=== PATIENT | female | born 1975 | race Caucasian/White ===

== ENCOUNTER 2017-12-30 17:34 | Inpatient (IN) | payer OTHER ==
[2017-12-30] VITALS (7 sets, daily range): BP systolic 96–129; BP diastolic 59–72; PULSE 59–83; RESP 16–20; TEMP 96.7–97.6; O2SAT 95–100
[~2017-12-30] VITALS: Ht 172.7 cm; Wt 82.0 kg
[~2017-12-30 17:34] MED LIST: IBUP-232 PO
[2017-12-30] MEDS ORDERED: SODIUM CHLOR 0.9% 1000 ML INJ 1,000 ML IV SCH (20:03)
--- NOTE | 2017-12-30 20:12 | PD ---
HPI Chief Complaint: GI Complaint Time Seen by Provider: 19:57 Travel History International Travel<30 days: No Contact w/Intl Traveler<30days: No Traveled to known affect area: No History of Present Illness HPI The patient is a 42-year-old female that complains of right upper abdominal pain and bilateral upper abdominal pain since 1245. The patient states she ate a normal lunch at 12:30 and the pain began at 1245. She knows she has gallstones, an ultrasound done last year, last summer, showed multiple gallstones in the gallbladder. This was done at [facility]. She denies any fever or vomiting but does have nausea. She states her pain is sharp and a 7/10. The pain radiates to both sides of her back. She states she gets these pains occasionally but they go away within a half an hour. This one did not go away. The patient states there is no possibility of , she has a Mirena. PFSH Past Medical History Diminished Hearing: No Social History Alcohol Use: No Tobacco Use: No Substance Use: No Allergies-Medications (Allergen,Severity, Reaction): Coded Allergies: No Known Allergies (Unverified Allergy, Unknown, 12/30/17) Reported Meds & Prescriptions Reported Meds & Active Scripts Active No Active Prescriptions or Reported Medications Review of Systems Except as stated in HPI: all other systems reviewed are Neg Physical Exam Narrative GENERAL: The patient is alert, oriented 3, slender in moderate apparent distress with her bilateral upper quadrant abdominal pain. Her vital signs are normal. SKIN: Focused skin assessment warm/dry. No skin rash is seen. HEAD: Atraumatic. Normocephalic. EYES: Pupils equal and round. No scleral icterus. No injection or drainage. ENT: No nasal bleeding or discharge. Mucous membranes pink and moist. NECK: Trachea midline. No JVD. CARDIOVASCULAR: Regular rate and rhythm. No murmur appreciated. RESPIRATORY: No accessory muscle use. Clear to auscultation. Breath sounds equal bilaterally. GASTROINTESTINAL: Abdomen soft, with tenderness in the bilateral upper quadrants without guarding but Davis's sign is positive, nondistended. Hepatic and splenic margins not palpable. MUSCULOSKELETAL: No obvious deformities. No clubbing. No cyanosis. No edema. NEUROLOGICAL: Awake and alert. No obvious cranial nerve deficits. Motor grossly within normal limits. Normal speech. PSYCHIATRIC: Appropriate mood and affect; insight and judgment normal. Data Data Last Documented VS Vital Signs Date Time Temp Pulse Resp B/P (MAP) Pulse Ox O2 Delivery O2 Flow Rate FiO2 12/30/17 21:44 67 16 96/64 (75) 99 Room Air 12/30/17 17:38 97.6 Orders Orders Complete Blood Count With Diff (12/30/17 20:03) Comprehensive Metabolic Panel (12/30/17 20:03) Lipase (12/30/17 20:03) Urinalysis - C+S If Indicated (12/30/17 20:03) Ct Abd/Pel W Iv Contrast(Rout) (12/30/17 20:03) Iv Access Insert/Monitor (12/30/17 20:03) Ecg Monitoring (12/30/17 20:03) Oximetry (12/30/17 20:03) Hydromorphone Pf Inj (Dilaudid Pf Inj) (12/30/17 20:15) Ondansetron Inj (Zofran Inj) (12/30/17 20:15) Sodium Chlor 0.9% 1000 Ml Inj (Ns 1000 M (12/30/17 20:03) Sodium Chloride 0.9% Flush (Ns Flush) (12/30/17 20:15) Ed Urine Pregnancytest Poc (12/30/17 20:16) Iohexol 350 Inj (Omnipaque 350 Inj) (12/30/17 20:52) Place In Observation (12/30/17 ) Vital Signs (Adult) Q4H (12/30/17 21:47) Activity Oob With Assistance (12/30/17 21:47) Diet Npo (12/31/17 Breakfast) Sodium Chlor 0.9% 1000 Ml Inj (Ns 1000 M (12/30/17 21:47) Sodium Chloride 0.9% Flush (Ns Flush) (12/30/17 22:00) Sodium Chloride 0.9% Flush (Ns Flush) (12/31/17 09:00) Acetaminophen (Tylenol) (12/30/17 22:00) Ondansetron Inj (Zofran Inj) (12/30/17 22:00) Comprehensive Metabolic Panel (12/31/17 06:00) Complete Blood Count With Diff (12/31/17 06:00) Scd Bilateral/Knee High PIPPA.BID (12/30/17 21:47) Naloxone Inj (Narcan Inj) (12/30/17 22:00) Docusate Sodium-Senna (Heydi-Colace) (12/31/17 09:00) Magnesium Hydroxide Liq (Milk Of Magnesi (12/30/17 22:00) Sennosides (Senokot) (12/30/17 22:00) Bisacodyl Supp (Dulcolax Supp) (12/30/17 22:00) Lactulose Liq (Lactulose Liq) (12/30/17 22:00) Consult Gastroenterology (12/30/17 ) Admit Order (Ed Use Only) (12/30/17 21:50) Labs Laboratory Tests Test 12/30/17 19:50 White Blood Count 15.1 TH/MM3 Red Blood Count 4.59 MIL/MM3 Hemoglobin 14.3 GM/DL Hematocrit 42.2 % Mean Corpuscular Volume 91.9 FL Mean Corpuscular Hemoglobin 31.2 PG Mean Corpuscular Hemoglobin Concent 33.9 % Red Cell Distribution Width 12.9 % Platelet Count 204 TH/MM3 Mean Platelet Volume 10.6 FL Neutrophils (%) (Auto) 78.8 % Lymphocytes (%) (Auto) 14.2 % Monocytes (%) (Auto) 5.8 % Eosinophils (%) (Auto) 0.7 % Basophils (%) (Auto) 0.5 % Neutrophils # (Auto) 11.9 TH/MM3 Lymphocytes # (Auto) 2.1 TH/MM3 Monocytes # (Auto) 0.9 TH/MM3 Eosinophils # (Auto) 0.1 TH/MM3 Basophils # (Auto) 0.1 TH/MM3 CBC Comment DIFF FINAL Differential Comment Urine Color REBECA Urine Turbidity CLEAR Urine pH GREATER/EQUAL 9.0 Urine Specific [place] 1.020 Urine Protein TRACE mg/dL Urine Glucose (UA) NEG mg/dL Urine Ketones NEG mg/dL Urine Occult Blood NEG Urine Nitrite NEG Urine Bilirubin NEG Urine Leukocyte Esterase NEG Urine RBC 0-2 /hpf Urine WBC 0-2 /hpf Urine Squamous Epithelial Cells 6-8 /hpf Urine Amorphous Sediment FEW Urine Bacteria NONE /hpf Microscopic Urinalysis Comment CULT NOT INDICATED Blood Urea Nitrogen 10 MG/DL Creatinine 0.77 MG/DL Random Glucose 104 MG/DL Total Protein 7.8 GM/DL Albumin 4.2 GM/DL Calcium Level 9.2 MG/DL Alkaline Phosphatase 199 U/L Aspartate Amino Transf (AST/SGOT) 460 U/L Alanine Aminotransferase (ALT/SGPT) 276 U/L Total Bilirubin 2.3 MG/DL Sodium Level 135 MEQ/L Potassium Level 3.5 MEQ/L Chloride Level 102 MEQ/L Carbon Dioxide Level 26.7 MEQ/L Anion Gap 6 MEQ/L Estimat Glomerular Filtration Rate 83 ML/MIN Lipase 165 U/L MDM Medical Decision Making Medical Screen Exam Complete: Yes Emergency Medical Condition: Yes Medical Record Reviewed: Yes Interpretation(s) The CT scan of the abdomen/pelvis shows multiple gallstones in the gallbladder and some dilatation of the common bile duct and biliary tree suggestive of some biliary tract obstruction. There is an IUD in the uterus and a right ovarian cyst measuring 3.6 cm. The urinalysis is rebeca color but is otherwise normal and culture is not indicated. The complete metabolic profile shows a GFR of 83 , alkaline phosphatase 199, GOT 460, GPT 276 and total bilirubin of 2.3 with sodium 135. The lipase is normal. The white count is 15,100 with 79% neutrophils but is otherwise unremarkable. Differential Diagnosis Cholelithiasis with colic, acute cholecystitis, pyelonephritis, colitis, pancreatitis, ulcer pain Narrative Course The patient appears to have common bile duct obstruction. This shows up on the CT of the abdomen and also shows with elevated liver enzymes. I discussed the patient with Dr. Herring, the patient will be admitted to her. Diagnosis Primary Impression: Common bile duct obstruction Scripts No Active Prescriptions or Reported Meds Josue Gayle MD Dec 30, 2017 20:12
[2017-12-30] MEDS ORDERED: HYDROmorphone HCL PF 2 MG/ML VIAL IVS ONE (20:15)
[2017-12-30] MEDS ORDERED: SODIUM CHLORIDE 0.9% FLUSH 10 ML FLUSH IV FLUSH PRN ×2 (20:15→22:00)
[2017-12-30] MEDS ORDERED: ONDANSETRON HCL 4 MG/2 ML VIAL IVP ONE (20:15)
[2017-12-30 20:23] LABS: AUTOMATED NEUTROPHIL # 11.9 TH/MM3 (1.8-7.7); BASOPHIL # 0.1 TH/MM3 (0-0.2); BASOPHIL % 0.5 % (0.0-2.0); EOSINOPHIL # 0.1 TH/MM3 (0-0.4); EOSINOPHIL % 0.7 % (0.0-4.0); HEMATOCRIT 42.2 % (35.0-46.0); HEMOGLOBIN 14.3 GM/DL (11.6-15.3); LYMPH % 14.2 % (9.0-44.0); LYMPHOCYTE # 2.1 TH/MM3 (1.0-4.8); MEAN CELL VOLUME 91.9 FL (80.0-100.0); MEAN CORPUSCULAR HEMOGLOBIN 31.2 PG (27.0-34.0); MEAN CORPUSCULAR HGB CONC 33.9 % (32.0-36.0); MEAN PLATELET VOLUME 10.6 FL (7.0-11.0); MONO % 5.8 % (0.0-8.0); MONOCYTE # 0.9 TH/MM3 (0-0.9); NEUT % 78.8 % (16.0-70.0); PLATELET COUNT 204 TH/MM3 (150-450); RED BLOOD COUNT 4.59 MIL/MM3 (4.00-5.30); RED CELL DISTRIBUTION WIDTH 12.9 % (11.6-17.2); WHITE BLOOD COUNT 15.1 TH/MM3 (4.0-11.0)
[2017-12-30 20:32] LABS: BILIRUBIN, URINE NEG (NEG); BLOOD, URINE NEG (NEG); GLUCOSE,URINE NEG (NEG); KETONE, URINE NEG (NEG); NITRITE,URINE NEG (NEG); PH, URINE GREATER/EQUAL 9.0 (5.0-8.5); URINE LEUKOCYTE ESTERASE NEG (NEG)
[2017-12-30 20:33] LABS: CHLORIDE 102 MEQ/L (98-107); SODIUM (NA) 135 MEQ/L (136-145)
[2017-12-30 20:36] LABS: ALBUMIN 4.2 GM/DL (3.4-5.0); BICARBONATE 26.7 MEQ/L (21.0-32.0); CALCIUM 9.2 MG/DL (8.5-10.1); URINE COLOR AMBER (YELLW/STRAW)
[2017-12-30 20:37] LABS: BLOOD UREA NITROGEN 10 MG/DL (7-18); GLUCOSE,RANDOM 104 MG/DL (74-106)
[2017-12-30 20:38] LABS: AMORPHOUS SEDIMENT, URINE FEW; RBC, URINE 0-2 /hpf (0-3); WBC, URINE 0-2 /hpf (0-5)
[2017-12-30 20:39] LABS: ALT (GPT) 276 U/L (10-53); AST (GOT) 460 U/L (15-37); CREATININE 0.77 MG/DL (0.50-1.00); GLOMERULAR FILTRATION RATE 83 ML/MIN (>89)
[2017-12-30 20:41] LABS: TOTAL BILIRUBIN ADULT 2.3 MG/DL (0.2-1.0); TOTAL PROTEIN 7.8 GM/DL (6.4-8.2)
[2017-12-30 20:42] LABS: ALKALINE PHOSPHATASE 199 U/L (45-117)
[2017-12-30] MEDS ORDERED: IOHEXOL 350 MG/ML 10 ML VIAL (for RAD DIAG) IVCONTRAST ONE (20:52)
--- NOTE | 2017-12-30 21:15 | RADRPT ---
EXAM DATE/TIME: 12/30/2017 20:48 [facility] COMPARISON: No previous studies available for comparison. INDICATIONS : Right upper quadrant abdominal pain. IV CONTRAST: 100 cc Omnipaque 350 (iohexol) IV ORAL CONTRAST: No oral contrast ingested. RADIATION DOSE: 15.57 CTDIvol (mGy) MEDICAL HISTORY : None SURGICAL HISTORY : None. ENCOUNTER: Initial ACUITY: 1 day PAIN SCALE: 5/10 LOCATION: Right upper quadrant abdomen TECHNIQUE: Volumetric scanning of the abdomen and pelvis was performed. Using automated exposure control and ad justment of the mA and/or kV according to patient size, radiation dose was kept as low as reasonably achievable to obtain optimal diagnostic quality images. DICOM format image data is available electro nically for review and comparison. FINDINGS: LOWER LUNGS: The visualized lower lungs are clear. LIVER: Liver is normal in size. There is a mildly dilated biliary ducts. There are stones in the gallbladder . There is some dilatation of the common bile duct measuring approximately 8 mm. SPLEEN: Normal size without lesion. PANCREAS: Within normal limits. KIDNEYS: Normal in size and shape. There is no mass, stone or hydronephrosis. ADRENAL GLANDS: Within normal limits. VASCULAR: There is no aortic aneurysm. BOWEL/MESENTERY: The stomach, small bowel, and colon demonstrate no acute abnormality. There is no free intraperitone al air or fluid. No inflammatory changes. ABDOMINAL WALL: Within normal limits. RETROPERITONEUM: There is no lymphadenopathy. BLADDER: No wall thickening or mass. REPRODUCTIVE: There is a right ovarian cyst measuring 3.4 x 3.6 cm. The uterus is unremarkable except for an IUD. N o free fluid in the cul-de-sac. INGUINAL: There is no lymphadenopathy or hernia. MUSCULOSKELETAL: Within normal limits for patient age. CONCLUSION: 1. Multiple gallstones in the gallbladder. 2. There appears to be some dilatation the common bile duct and biliary tree suggestive of some bilia ry tract obstruction. 3. Right ovarian cyst measuring 3.6 cm. 4. IUD in uterus. Mayur Maradiaga MD on December 30, 2017 at 21:09 Board Certified Radiologist. This report was verified electronically.
[2017-12-30] MEDS ORDERED: SENNOSIDES 8.6 MG TAB PO PRN (22:00)
[2017-12-30] MEDS ORDERED: ACETAMINOPHEN 325 MG TAB PO PRN (22:00)
[2017-12-30] MEDS ORDERED: MAGNESIUM HYDROXIDE SUSP 30 ML CUP PO PRN (22:00)
[2017-12-30] MEDS ORDERED: NALOXONE HCL 0.4 MG/ML AMP IV PUSH PRN (22:00)
[2017-12-30] MEDS ORDERED: BISACODYL 10 MG SUPP RECTAL PRN (22:00)
[2017-12-30] MEDS ORDERED: LACTULOSE SYRUP 20 GM/30 ML CUP PO PRN (22:00)
[2017-12-30] MEDS: ONDANSETRON HCL 4 MG/2 ML VIAL IVP PRN (22:12)
[2017-12-30] MEDS: SODIUM CHLOR 0.9% 1000 ML INJ 1,000 ML IV SCH (22:12)
[2017-12-31 04:00] VITALS: BP 101/57; PULSE 58; RESP 20; TEMP 98.1; O2SAT 100
[2017-12-31] MEDS ORDERED: MORPHINE SULFATE 2 MG/ML INJ IV PUSH PRN (05:15)
[2017-12-31] MEDS: ONDANSETRON HCL 4 MG/2 ML VIAL IVP PRN (05:25)
[2017-12-31 07:05] LABS: AUTOMATED NEUTROPHIL # 7.7 TH/MM3 (1.8-7.7); BASOPHIL % 0.2 % (0.0-2.0); EOSINOPHIL # 0.3 TH/MM3 (0-0.4); EOSINOPHIL % 2.3 % (0.0-4.0); HEMATOCRIT 37.1 % (35.0-46.0); LYMPH % 20.2 % (9.0-44.0); LYMPHOCYTE # 2.3 TH/MM3 (1.0-4.8); MEAN CELL VOLUME 93.1 FL (80.0-100.0); MEAN CORPUSCULAR HEMOGLOBIN 30.2 PG (27.0-34.0); MEAN CORPUSCULAR HGB CONC 32.4 % (32.0-36.0); MEAN PLATELET VOLUME 10.9 FL (7.0-11.0); MONO % 8.4 % (0.0-8.0); MONOCYTE # 0.9 TH/MM3 (0-0.9); NEUT % 68.9 % (16.0-70.0); PLATELET COUNT 176 TH/MM3 (150-450); RED BLOOD COUNT 3.98 MIL/MM3 (4.00-5.30); RED CELL DISTRIBUTION WIDTH 13.3 % (11.6-17.2); WHITE BLOOD COUNT 11.2 TH/MM3 (4.0-11.0)
[2017-12-31 07:12] LABS: CHLORIDE 107 MEQ/L (98-107); SODIUM (NA) 139 MEQ/L (136-145)
[2017-12-31 07:37] LABS: ALKALINE PHOSPHATASE 154 U/L (45-117); ALT (GPT) 288 U/L (10-53); AST (GOT) 334 U/L (15-37); BICARBONATE 25.3 MEQ/L (21.0-32.0); BLOOD UREA NITROGEN 8 MG/DL (7-18); CALCIUM 7.7 MG/DL (8.5-10.1); CREATININE 0.64 MG/DL (0.50-1.00); GLOMERULAR FILTRATION RATE 102 ML/MIN (>89); GLUCOSE,RANDOM 85 MG/DL (74-106); TOTAL BILIRUBIN ADULT 3.9 MG/DL (0.2-1.0); TOTAL PROTEIN 5.6 GM/DL (6.4-8.2)
[2017-12-31] MEDS: SODIUM CHLOR 0.9% 1000 ML INJ 1,000 ML IV SCH ×2 (07:47→20:51)
[2017-12-31] MEDS: DOCUSATE SODIUM 50 MG/SENNA 8.6 MG TAB PO SCH ×2 (09:00→20:52)
[2017-12-31] MEDS: SODIUM CHLORIDE 0.9% FLUSH 10 ML FLUSH IV FLUSH SCH ×2 (09:00→20:52)
[2017-12-31 09:11] VITALS: BP 107/60; PULSE 66; RESP 16; TEMP 97.3; O2SAT 99
--- NOTE | 2017-12-31 11:58 | HHI.HP ---
[facility] Kody Farris MD Admission Diagnosis common bile duct obstruction Diagnoses: Travel History International Travel<30 Days: No Contact w/Intl Traveler <30 Da: No Traveled to Known Affected Are: No History of Present Illness hx from patient and review of med records stated that yesterday around 1230 pm, she started having abdominal pain, pain in ruq pain some nausea no vomiting no diarrhea no fever usually knows she has gallstones this is her 4th gallbladder attack Review of Systems Except as stated in HPI: all other systems reviewed are Neg Past Family Social History Past Medical History cholelithiasis seasonal allergies Past Surgical History nasal septum deviation sx Mirena replaced Allergies: Coded Allergies: No Known Allergies (Unverified Allergy, Unknown, 12/31/17) Family History grandma- lung cancer grandfather- colon cancer step sister- ovarian cancer mom- thyroid problems aunt- maternal- breast and skin cancer Social History quit smoking 2004 drinks wine one or two a night no drugs Physical Exam Vital Signs Vital Signs Date Time Temp Pulse Resp B/P (MAP) Pulse Ox O2 Delivery O2 Flow Rate FiO2 12/31/17 09:11 97.3 66 16 107/60 (76) 99 12/31/17 04:00 98.1 58 20 101/57 (72) 100 12/30/17 23:30 96.7 83 20 116/68 (84) 99 12/30/17 23:21 65 18 102/71 (81) 99 12/30/17 22:41 59 18 109/72 (84) 100 Room Air 12/30/17 21:44 67 16 96/64 (75) 99 Room Air 12/30/17 20:39 72 16 106/64 (78) 99 Room Air 12/30/17 20:10 95 Room Air 12/30/17 20:06 18 12/30/17 17:38 97.6 73 16 129/59 (82) 100 Physical Exam GENERAL: This is a well-nourished, well-developed patient, in no apparent distress. SKIN: No rashes, ecchymoses or lesions. Cool and dry. HEAD: Atraumatic. Normocephalic. No temporal or scalp tenderness. EYES: mild scleral icterus. No injection or drainage. ENT: Nose without bleeding, purulent drainage or septal hematoma. . Airway patent. NECK: Trachea midline. No JVD CARDIOVASCULAR: Regular rate and rhythm without murmurs, gallops, or rubs. RESPIRATORY: Clear to auscultation. Breath sounds equal bilaterally. No wheezes , rales, or rhonchi. GASTROINTESTINAL: Abdomen soft,tenderness diffusely, nondistended. . No guarding. MUSCULOSKELETAL: Extremities without clubbing, cyanosis, or edema. No joint tenderness, effusion, or edema noted. No calf tenderness. NEUROLOGICAL: Awake and alert. Motor and sensory grossly within normal limits. Normal speech. Laboratory Laboratory Tests Test 12/30/17 19:50 12/31/17 05:45 White Blood Count 15.1 11.2 Red Blood Count 4.59 3.98 Hemoglobin 14.3 12.0 Hematocrit 42.2 37.1 Mean Corpuscular Volume 91.9 93.1 Mean Corpuscular Hemoglobin 31.2 30.2 Mean Corpuscular Hemoglobin Concent 33.9 32.4 Red Cell Distribution Width 12.9 13.3 Platelet Count 204 176 Mean Platelet Volume 10.6 10.9 Neutrophils (%) (Auto) 78.8 68.9 Lymphocytes (%) (Auto) 14.2 20.2 Monocytes (%) (Auto) 5.8 8.4 Eosinophils (%) (Auto) 0.7 2.3 Basophils (%) (Auto) 0.5 0.2 Neutrophils # (Auto) 11.9 7.7 Lymphocytes # (Auto) 2.1 2.3 Monocytes # (Auto) 0.9 0.9 Eosinophils # (Auto) 0.1 0.3 Basophils # (Auto) 0.1 0.0 CBC Comment DIFF FINAL DIFF FINAL Differential Comment Urine Color CARROLL Urine Turbidity CLEAR Urine pH GREATER/EQUAL 9.0 Urine Specific [place] 1.020 Urine Protein TRACE Urine Glucose (UA) NEG Urine Ketones NEG Urine Occult Blood NEG Urine Nitrite NEG Urine Bilirubin NEG Urine Leukocyte Esterase NEG Urine RBC 0-2 Urine WBC 0-2 Urine Squamous Epithelial Cells 6-8 Urine Amorphous Sediment FEW Urine Bacteria NONE Microscopic Urinalysis Comment CULT NOT INDICATED Blood Urea Nitrogen 10 8 Creatinine 0.77 0.64 Random Glucose 104 85 Total Protein 7.8 5.6 Albumin 4.2 3.0 Calcium Level 9.2 7.7 Alkaline Phosphatase 199 154 Aspartate Amino Transf (AST/SGOT) 460 334 Alanine Aminotransferase (ALT/SGPT) 276 288 Total Bilirubin 2.3 3.9 Sodium Level 135 139 Potassium Level 3.5 3.6 Chloride Level 102 107 Carbon Dioxide Level 26.7 25.3 Anion Gap 6 7 Estimat Glomerular Filtration Rate 83 102 Lipase 165 Result Diagram: 12/31/1745 12/31/1745 Imaging Last 48 hours Impressions Abdomen/Pelvis CT 12/30/172002 Signed Impressions: Service Date/Time: Saturday, December 30, 2017 20:48 - CONCLUSION: 1. Multiple gallstones in the gallbladder. 2. There appears to be some dilatation the common bile duct and biliary tree suggestive of some biliary tract obstruction. 3. Right ovarian cyst measuring 3.6 cm. 4. IUD in uterus. MD Clary Cedillo VTE Risk Assessment Caprini VTE Risk Assessment: No/Low Risk (score <= 1) Caprini Risk Assessment Model Point Value = 1 Point Value = 2 Point Value = 3 Point Value = 5 Age 41-60 Minor surgery BMI > 25 kg/m2 Swollen legs Varicose veins or History of unexplained or recurrent spontaneous Oral contraceptives or hormone replacement Sepsis (< 1 month) Serious lung disease, including pneumonia (< 1 month) Abnormal pulmonary function Acute myocardial infarction Congestive heart failure (< 1 month) History of inflammatory bowel disease Medical patient at bed rest Age 61-74 Arthroscopic surgery Major open surgery (> 45 min) Laparoscopic surgery (> 45 min) Malignancy Confined to bed (> 72 hours) Immobilizing plaster cast Central venous access Age >= 75 History of VTE Family history of VTE Factor V Leiden Prothrombin [id number] Lupus anticoagulant Anticardiolipin antibodies Elevated serum homocysteine Heparin-induced thrombocytopenia Other congenital or acquired thrombophilia Stroke (< 1 month) Elective arthroplasty Hip, pelvis, or leg fracture Acute spinal cord injury (< 1 month) Prophylaxis Regimen Total Risk Factor Score Risk Level Prophylaxis Regimen 0-1 Low Early ambulation 2 Moderate Order ONE of the following: *Sequential Compression Device (SCD) *Heparin 5000 units SQ BID 3-4 Higher Order ONE of the following medications: *Heparin 5000 units SQ TID *Enoxaparin/Lovenox 40 mg SQ daily (WT < 150 kg, CrCl > 30 mL/min) *Enoxaparin/Lovenox 30 mg SQ daily (WT < 150 kg, CrCl > 10-29 mL/min) *Enoxaparin/Lovenox 30 mg SQ BID (WT < 150 kg, CrCl > 30 mL/min) AND/OR *Sequential Compression Device (SCD) 5 or more Highest Order ONE of the following medications: *Heparin 5000 units SQ TID (Preferred with Epidurals) *Enoxaparin/Lovenox 40 mg SQ daily (WT < 150 kg, CrCl > 30 mL/min) *Enoxaparin/Lovenox 30 mg SQ daily (WT < 150 kg, CrCl > 10-29 mL/min) *Enoxaparin/Lovenox 30 mg SQ BID (WT < 150 kg, CrCl > 30 mL/min) AND *Sequential Compression Device (SCD) Assessment and Plan Assessment and Plan Impression: symptomatic cholelithiasis CBD dilation. Suspect CBD stone. LFT abnormalities secondary to biliary obstruction Obstructive jaundice Plan: Nothing by mouth. IV hydration. Pain control. GI was consulted. Discussed with GI doc for ERCP. Advised to transfer patient today for ERCP today at the [facility]. General surgery consult for cholecystectomy. DVT prophylaxis with SCD. chagned to full admit Discussed Condition With patient, GI attending, nursing staff Zahraa Justin MD Dec 31, 2017 11:58
[2017-12-31] MEDS ORDERED: PROPOFOL 200 MG/20 ML AMP IV ONE (12:00)
[2017-12-31] MEDS ORDERED: DEXAMETHASONE SOD PHOS 4 MG/ML VIAL IV ONE (12:00)
[2017-12-31] MEDS ORDERED: SUCCINYLCHOLINE CHLORIDE 200 MG/10 ML VIAL IV ONE (12:00)
[2017-12-31] MEDS ORDERED: ONDANSETRON HCL 4 MG/2 ML VIAL IV ONE (12:00)
[2017-12-31] MEDS ORDERED: LIDOCAINE HCL 1% PF 5 ML SYRINGE OTHER ONE (12:00)
[2017-12-31 13:42] VITALS: BP 100/55; PULSE 64; RESP 16; TEMP 98; O2SAT 97
--- NOTE | 2017-12-31 15:21 | RADRPT ---
EXAM DATE/TIME: 12/31/2017 12:38 [facility] COMPARISON: CT ABDOMEN & PELVIS W CONTRAST, December 30, 2017, 20:48. INDICATIONS : Right upper quadrant pain. Abnormal CT. MEDICAL HISTORY : Cholelithiasis. Nausea. Abdominal pain. SURGICAL HISTORY : Nasal surgery. ENCOUNTER: Initial ACUITY: 1 day PAIN SCORE: 3/10 LOCATION: Right upper quadrant MEASUREMENTS: LIVER: 15.2 cm length COMMON DUCT: 9 mm RIGHT KIDNEY: 13.4 x 4.7 x 4.7 cm FINDINGS: LIVER: Mild intrahepatic biliary ductal dilatation. No focal liver mass. COMMON DUCT: Mildly dilated with a diameter of 9 mm. No definite filling defect. GALLBLADDER: Moderate wall thickening. Multiple stones. PANCREAS: The visualized portions are within normal limits. RIGHT KIDNEY: No evidence of hydronephrosis, stone, or mass. CONCLUSION: Intra-and extra-hepatic biliary ductal dilatation. Gallstones and gallbladder wall thickening. Kody Hicks MD on December 31, 2017 at 15:17 Board Certified Radiologist. This report was verified electronically.
--- NOTE | 2017-12-31 16:15 | PD.CONS ---
HPI History of Present Illness This is a 42 year old female with no significant prior medical hx who presented to [place] with c/o abd pain that started yesterday. Pain is in epigastrium and radiates to the sides. Had some nausea at onset but no vomiting. She has had prior episodes of this pain which she attributed to her gallbladder but they resolved. This pain was worse. Denies vomiting, diarrhea. Never had EGD or colonoscopy. Not on blood thinners. (Christa Marroquin) PFSH Past Medical History cholelithiasis seasonal allergies Past Surgical History nasal septum deviation sx Mirena replaced (Christa Marroquin) Coded Allergies: No Known Allergies (Unverified Allergy, Unknown, 12/31/17) Family History grandma- lung cancer grandfather- colon cancer step sister- ovarian cancer mom- thyroid problems aunt- maternal- breast and skin cancer Social History quit smoking 2004 drinks wine one or two a night no drugs (Christa Marroquin) Review of Systems Constitutional: DENIES: Fever Endocrine: DENIES: Polydipsia Eyes: DENIES: Blurred vision Ears, nose, mouth, throat: DENIES: Hearing loss Respiratory: DENIES: Cough Cardiovascular: DENIES: Chest pain Gastrointestinal: COMPLAINS OF: Abdominal pain, Nausea, DENIES: Black stools, Bloody stools, Constipation, Diarrhea, Vomiting Genitourinary: DENIES: Hematuria Musculoskeletal: DENIES: Joint Swelling Integumentary: DENIES: Rash Hematologic/lymphatic: DENIES: Bruising Immunologic/allergic: DENIES: Eczema Neurologic: DENIES: Abnormal gait Psychiatric: DENIES: Confusion (Christa Marroquin) GI Exam Vitals I&O Vital Signs Date Time Temp Pulse Resp B/P (MAP) Pulse Ox O2 Delivery O2 Flow Rate FiO2 12/31/17 13:42 98.0 64 16 100/55 (70) 97 12/31/17 09:11 97.3 66 16 107/60 (76) 99 12/31/17 04:00 98.1 58 20 101/57 (72) 100 12/30/17 23:30 96.7 83 20 116/68 (84) 99 12/30/17 23:21 65 18 102/71 (81) 99 12/30/17 22:41 59 18 109/72 (84) 100 Room Air 12/30/17 21:44 67 16 96/64 (75) 99 Room Air 12/30/17 20:39 72 16 106/64 (78) 99 Room Air 12/30/17 20:10 95 Room Air 12/30/17 20:06 18 12/30/17 17:38 97.6 73 16 129/59 (82) 100 I/O 12/30/17 12/30/17 12/30/17 12/31/17 12/31/17 12/31/17 07:00 15:00 23:00 07:00 15:00 23:00 Intake Total 1000 ml 476 ml 1000 ml Balance 1000 ml 476 ml 1000 ml Intake Oral 0 ml IV Total 1000 ml 476 ml 1000 ml # Voids 2 # Bowel Movements 0 Imaging Last Impressions Gall Bladder Ultrasound 12/31/17 0000 Signed Impressions: Service Date/Time: December 12:38 - CONCLUSION: Intra-and extra-hepatic biliary ductal dilatation. Gallstones and gallbladder wall thickening. Kody Hicks MD Abdomen/Pelvis CT 12/30/172002 Signed Impressions: Service Date/Time: Saturday, December 30, 2017 20:48 - CONCLUSION: 1. Multiple gallstones in the gallbladder. 2. There appears to be some dilatation the common bile duct and biliary tree suggestive of some biliary tract obstruction. 3. Right ovarian cyst measuring 3.6 cm. 4. IUD in uterus. Mayur Maradiaga MD Laboratory Test 12/30/17 19:50 12/31/17 05:45 White Blood Count 15.1 TH/MM3 11.2 TH/MM3 Red Blood Count 4.59 MIL/MM3 3.98 MIL/MM3 Hemoglobin 14.3 GM/DL 12.0 GM/DL Hematocrit 42.2 % 37.1 % Mean Corpuscular Volume 91.9 FL 93.1 FL Mean Corpuscular Hemoglobin 31.2 PG 30.2 PG Mean Corpuscular Hemoglobin Concent 33.9 % 32.4 % Red Cell Distribution Width 12.9 % 13.3 % Platelet Count 204 TH/MM3 176 TH/MM3 Mean Platelet Volume 10.6 FL 10.9 FL Neutrophils (%) (Auto) 78.8 % 68.9 % Lymphocytes (%) (Auto) 14.2 % 20.2 % Monocytes (%) (Auto) 5.8 % 8.4 % Eosinophils (%) (Auto) 0.7 % 2.3 % Basophils (%) (Auto) 0.5 % 0.2 % Neutrophils # (Auto) 11.9 TH/MM3 7.7 TH/MM3 Lymphocytes # (Auto) 2.1 TH/MM3 2.3 TH/MM3 Monocytes # (Auto) 0.9 TH/MM3 0.9 TH/MM3 Eosinophils # (Auto) 0.1 TH/MM3 0.3 TH/MM3 Basophils # (Auto) 0.1 TH/MM3 0.0 TH/MM3 CBC Comment DIFF FINAL DIFF FINAL Differential Comment Urine Color CARROLL Urine Turbidity CLEAR Urine pH GREATER/EQUAL 9.0 Urine Specific [place] 1.020 Urine Protein TRACE mg/dL Urine Glucose (UA) NEG mg/dL Urine Ketones NEG mg/dL Urine Occult Blood NEG Urine Nitrite NEG Urine Bilirubin NEG Urine Leukocyte Esterase NEG Urine RBC 0-2 /hpf Urine WBC 0-2 /hpf Urine Squamous Epithelial Cells 6-8 /hpf Urine Amorphous Sediment FEW Urine Bacteria NONE /hpf Microscopic Urinalysis Comment CULT NOT INDICATED Blood Urea Nitrogen 10 MG/DL 8 MG/DL Creatinine 0.77 MG/DL 0.64 MG/DL Random Glucose 104 MG/DL 85 MG/DL Total Protein 7.8 GM/DL 5.6 GM/DL Albumin 4.2 GM/DL 3.0 GM/DL Calcium Level 9.2 MG/DL 7.7 MG/DL Alkaline Phosphatase 199 U/L 154 U/L Aspartate Amino Transf (AST/SGOT) 460 U/L 334 U/L Alanine Aminotransferase (ALT/SGPT) 276 U/L 288 U/L Total Bilirubin 2.3 MG/DL 3.9 MG/DL Sodium Level 135 MEQ/L 139 MEQ/L Potassium Level 3.5 MEQ/L 3.6 MEQ/L Chloride Level 102 MEQ/L 107 MEQ/L Carbon Dioxide Level 26.7 MEQ/L 25.3 MEQ/L Anion Gap 6 MEQ/L 7 MEQ/L Estimat Glomerular Filtration Rate 83 ML/MIN 102 ML/MIN Lipase 165 U/L Physical Examination HEENT: PERRL; normocephalic; atraumatic; + mild icterus CHEST: CTA CARDIAC: RRR ABDOMEN: Soft, nondistended, epigastric TTP; no hepatosplenomegaly; bowel sounds are present in all four quadrants. EXTREMITIES: No clubbing, cyanosis, or edema. SKIN: Normal; no rash; subtle jaundice. CLAIMS AUDITOR: No focal deficits; alert and oriented times three. (Christa Marroquin) Assessment and Plan Plan ASSESSMENT - abd pain, elevated LFTs - epigastric pain onset 1 d ago, LFTs elevated in obstructive pattern, mild jaundice. cholelithiasis and biliary dilatation noted on both CT and US. PLAN - ERCP - obtain consent - NPO - rck LFTs in am - further recs to follow pt seen by myself and Dr Al and this note is written on his behalf (Christa Marroquin) Plan She was seen and examined, agree with above Notes, we will plan on ERCP today (Linda Al MD) Christa Marroquin Dec 31, 2017 16:15 Linda Al MD Dec 31, 2017 17:17
[2017-12-31] MEDS: PIPERACIL-TAZO 4.5 GM PREMIX 100 ML IV SCH ×2 (17:00→23:00)
[2017-12-31] MEDS ORDERED: DO NOT ADM ANY ANTICOAGULANT DRUGS PRN (17:20)
--- NOTE | 2017-12-31 17:27 | PD.PROCEDR ---
GI Procedure PROCEDURE PERFORMED ERCP with sphincterotomy, stone removal by sweeping the duct with balloons, brushing of the hepatic ducts INDICATION FOR PROCEDURE Elevated liver function test, dilated common bile duct on CT scan PROCEDURE: The procedure, risks and benefits were discussed with Ms. Finn and informed consent was obtained. Anesthesia sedated her with Diprivan. She was placed in the left lateral decubitus position. ERCP: Patient was placed in a prone position. The Pentax videoscope was introduced through the oropharynx and advanced to the second portion of the duodenum where the ampula was identified. Cannulation was performed without any difficulty cholangiogram showed questionable filling defects in the common bile duct, sphincterotomy was performed without any side effects, sweeping the duct with balloon size 11.5 mm with a few small stones retrieved Patient also had some narrowing in bed proximal, hepatic ducts brushing was performed then the scope withdrawal back without any immediate complication ESTIMATED BLOOD LOSS: none SPECIMENS REMOVED: Brushing of the hepatic duct COMPLICATIONS: none IMPRESSION: EGD limited exam stomach was full of food Questionable narrowing in the hepatic duct brushing was performed Multiple small stones removed from the common bile duct PLAN: NPO LFTs in am await brushing May need laparoscopic cholecystectomy I discussed the case with radiology he said that there was no abnormality seen on CT scan, he would review the images from the ERCP and will advise us if he thinks an MRCP is indicated to rule out mass in the winifred hepatis Linda Al MD Dec 31, 2017 17:27
[2017-12-31] MEDS ORDERED: IOHEXOL 300 INJ 50 ML IV ONE (17:34)
--- NOTE | 2017-12-31 17:35 | RADRPT ---
EXAM DATE/TIME: 12/31/2017 17:13 [facility] COMPARISON: No previous studies available for comparison. INDICATIONS : Stone removal. FLUORO TIME: 3.25 minutes IMAGE COUNT: 2 CONTRAST: Instilled by Ordering Physician MEDICAL HISTORY : None. SURGICAL HISTORY : None. ENCOUNTER: Initial ACUITY: 1 day PAIN SCORE: Non-responsive. LOCATION: Bilateral Abdomen FINDINGS: An ERCP was performed by the ordering physician. The images demonstrate 2 stones within the proximal common bile duct. Subsequent imaging demonstrates balloon stone extraction. The intrahepatic ducts are normal in caliber. CONCLUSION: ERCP as above. Pradeep King MD on December 31, 2017 at 17:32 Board Certified Radiologist. This report was verified electronically.
[2017-12-31 18:35] VITALS: BP 107/53; PULSE 69; RESP 18; TEMP 97.8; O2SAT 98
[2017-12-31] MEDS ORDERED: PHENOL 1.4% SOLN 180 ML BTL OROPHARYNG PRN (20:00)
--- NOTE | 2017-12-31 20:06 | RADRPT ---
EXAM DATE/TIME: 12/31/2017 19:28 [facility] COMPARISON: GI LAB ERCP, December 31, 2017, 17:13. US ABDOMEN - GALLBLADDER, December 31, 2017, 12:38. CT ABDOM EN & PELVIS W CONTRAST, December 30, 2017, 20:48. INDICATIONS : Obstruction. Abdominal pain. MEDICAL HISTORY : None. SURGICAL HISTORY : Deviated septum repair. ENCOUNTER: Initial ACUITY: 3 day PAIN SCORE: 6/10 LOCATION: Right upper quadrant TECHNIQUE: Multiplanar, multisequence magnetic resonance imaging of the abdomen was performed. High-resolution 3D dataset was utilized to reconstruct maximum-intensity projection (MIP) images. FINDINGS: Common bile duct measures 9 mm. No duct stones or strictures. Multiple stones up to 29 mm in size seen in the gallbladder. There is pericholecystic fluid and mild wall thickening. Liver and intrahepatic ducts within normal limits. Pancreas and pancreatic duct within normal limits. CONCLUSION: 1. Mildly distended common bile duct for a patient this age but no persistent or recurrent ductal sto neelam. 2. Cholelithiasis. Pericholecystic fluid and mild wall thickening noted. Kody Brito MD on December 31, 2017 at 20:02 Board Certified Radiologist. This report was verified electronically.
[2017-12-31 20:25] VITALS: O2SAT 98
[2017-12-31 20:49] VITALS: BP 105/64; PULSE 60; RESP 18; TEMP 98.4; O2SAT 97
[2018-01-01 00:03] VITALS: BP 99/59; PULSE 80; RESP 17; TEMP 97.6; O2SAT 98
[2018-01-01] MEDS: PIPERACIL-TAZO 4.5 GM PREMIX 100 ML IV SCH ×4 (02:04→21:20)
[2018-01-01] MEDS: SODIUM CHLOR 0.9% 1000 ML INJ 1,000 ML IV SCH ×3 (02:04→21:21)
[2018-01-01 05:47] LABS: ALBUMIN 3.6 GM/DL (3.4-5.0); ALT (GPT) 315 U/L (10-53); AST (GOT) 191 U/L (15-37); BICARBONATE 20.8 MEQ/L (21.0-32.0); BLOOD UREA NITROGEN 7 MG/DL (7-18); CALCIUM 8.5 MG/DL (8.5-10.1); CHLORIDE 107 MEQ/L (98-107); CREATININE 0.67 MG/DL (0.50-1.00); GLOMERULAR FILTRATION RATE 97 ML/MIN (>89); GLUCOSE,RANDOM 96 MG/DL (74-106); SODIUM (NA) 137 MEQ/L (136-145)
[2018-01-01 05:49] LABS: ALKALINE PHOSPHATASE 234 U/L (45-117); TOTAL BILIRUBIN ADULT 7.3 MG/DL (0.2-1.0)
[2018-01-01] MEDS ORDERED: BUPIVACAINE/EPINEPHRINE 0.5% PF 30 ML VIAL ONE (06:45)
[2018-01-01] MEDS ORDERED: APREPITANT 40 MG CAP ONE (06:51)
--- NOTE | 2018-01-01 07:30 | HHI.PR ---
Immediate Post Op Note Procedure Date: Jan 01, 2018 Pre Op Diagnosis: choledocholithiasis, symptomatic cholelithiasis Post Op Diagnosis: same Surgeon: Kevin Fulton MD Broker Associate(s): gordon Procedure: lap IOC, Lap CBD exploration, lap antoinette Findings: distended gallbladder multiple stones, distal cbd stones obstructing flow of contrast to duodenum, distended cbd decompressed following exploration Complications: none Specimen(s) removed: gallbladder Estimated blood loss: 5cc Anesthesia: General Drains: None Patient to: PACU Patient Condition: Good Kevin Fulton MD Jan 01, 2018 07:30
[2018-01-01] MEDS: DOCUSATE SODIUM 50 MG/SENNA 8.6 MG TAB PO SCH ×2 (09:00→21:00)
--- NOTE | 2018-01-01 09:12 | MB ---
cc: ANGELY JIMENEZ MD DATE OF CONSULTATION 12/31/2017 REASON FOR CONSULTATION Choledocholithiasis, right upper quadrant abdominal pain. HISTORY OF PRESENT ILLNESS The patient is a 42-year female who presents with acute onset of abdominal pain. The patient states the right upper quadrant abdominal pain started around 12:30 p.m. and continued to get worse. The patient also had associated nausea, denied any vomiting. Her pain was 07/10, currently 04/10 constant with some radiation to the epigastrium. She has had several gallbladder attacks before. She states they have been mild. She went to the emergency department initially showing gallstones without further work up or treatment. Other attacks have been mild and self resolving. This one was severe and significant therefore she came to the emergency department for further evaluation including CT findings of multiple gallstones, some gallbladder wall thickening and concern for common bile duct stones as well as a total bilirubin of 3.9, lipase was normal. Surgery was consulted for further evaluation. PAST MEDICAL HISTORY Cholelithiasis PAST SURGICAL HISTORY 1. Nasal septum surgery 2. Mirena ALLERGIES NO KNOWN DRUG ALLERGIES. MEDICATIONS See EMR. SOCIAL HISTORY Quit smoking in 2004, occasional ETOH, denies IVDA. FAMILY HISTORY Mother had lung cancer. Grandfather colon cancer. Mother thyroid issues, breast and skin cancer. REVIEW OF SYSTEMS GENERAL: Denies fever or chills. HEENT: Denies eye pain, ear pain. NECK: Denies swelling or pain. LUNGS: Denies cough or wheeze. HEART: Denies palpitations or chest pain. ABDOMEN: Complains of nausea and abdominal pain. Denies vomiting. : Denies dysuria or hematuria. ENDOCRINE: Denies polyuria or polydipsia. INTEGUMENT: Denies new masses or lesions. PHYSICAL EXAMINATION GENERAL: The patient is in no acute tears distress. VITAL SIGNS: Temperature 97.3, pulse 66, respirations 16, blood pressure was 107/60, saturation 99%. HEENT: Pupils equal round reactive. Normocephalic, atraumatic. NECK: Supple. Trachea midline. LUNGS: Clear to auscultation, bilateral expansion. HEART: S1-S2 regular rhythm. ABDOMEN: Soft, positive tenderness to palpation right upper quadrant. Mild rebound, no guarding. : Within normal limits. EXTREMITIES: Warm, well perfused. MUSCULOSKELETAL: Full range of motion x4. 5/5 motor strength. NEUROLOGIC: AO x four. Sensation intact. LABORATORY AND DIAGNOSTIC DATA WBC 11.2, hemoglobin 12, hematocrit 37.1, platelets 176. Sodium 139, potassium 3.6, BUN 8, creatinine 0.6, total bilirubin 3.9, AST 334, ALT 288, alkaline phosphatase 154, lipase 165. CT reviewed by myself, multiple gallstones in the gallbladder, dilation of common bile duct, suggestion of stones. ASSESSMENT This is a 42-year-old female with right upper quadrant abdominal pain, choledocholithiasis/cholelithiasis. PLAN A full workup on the patient with the above-named issues. At this point, the patient is undergoing ERCP with stone extraction for common bile duct stones. The patient will likely warrant MRCP to further evaluate ducts. Discussed with the patient in detail regarding following ERCP and pending results. She will likely need a laparoscopic cholecystectomy, possible IOC, possible bile duct exploration, possible open. The patient states understanding and agrees. Continue to evaluate and follow laboratory values. Again, discussed with the patient in detail. MD EDUARDO Duarte/VARGHESE /11:01 PM /8:53 AM [id number]
[2018-01-01] MEDS ORDERED: DO NOT ADM ANY ANTICOAGULANT DRUGS PRN (09:30)
[2018-01-01] MEDS ORDERED: *MEPERIDINE 25 MG INJ VIAL PERIprocedural Use ONLY ONE (09:37)
[2018-01-01] MEDS ORDERED: MIDAZOLAM HCL 2 MG/2 ML VIAL ONE (09:40)
--- NOTE | 2018-01-01 09:57 | RADRPT ---
EXAM DATE/TIME: 01/01/2018 08:21 [facility] COMPARISON: No previous studies available for comparison. INDICATIONS : Choledocolithiasis. FLUORO TIME: 0.73 minutes IMAGE COUNT: 4 MEDICAL HISTORY : Cholelithiasis. SURGICAL HISTORY : ERCP ENCOUNTER: Subsequent ACUITY: 3 days PAIN SCORE: Non-responsive. LOCATION: Right upper quadrant PROCEDURE: CHOLANGIOGRAM, OPERATIVE 1. Intraoperative cholangiogram. In the operating room, the cystic duct stump was injected and radiographs obtained. Mildly prominent common duct without flow contrast into duodenum. I don't see filling defect. Dista l common duct is tapered. CONCLUSION: Cannot verify unobstructed flow into the duodenum. Americo King MD FACR on January 01, 2018 at 9:54 Board Certified Radiologist. This report was verified electronically.
[2018-01-01 10:19] VITALS: BP 99/61; PULSE 63; RESP 17; TEMP 96.4; O2SAT 99
--- NOTE | 2018-01-01 11:30 | HHI.PR ---
Subjective Remarks Patient just came back from PACU. Currently her pain is a 3 out of 10. No nausea or vomiting at this time. Patient does tell me that she cannot tolerate high doses of opiates and usually Tylenol 3 is what she takes. Wonders if she could have this. Denies any chest pains or shortness of breath. Objective Vitals Vital Signs Date Time Temp Pulse Resp B/P (MAP) Pulse Ox O2 Delivery O2 Flow Rate FiO2 01/01/18 10:19 96.4 63 17 99/61 (74) 99 01/01/18 10:00 70 16 99/62 (74) 99 Room Air 01/01/18 09:45 72 16 102/62 (75) 98 Room Air 01/01/18 09:30 97.7 77 16 97/55 (69) 98 Nasal Cannula 2 01/01/18 00:03 97.6 80 17 99/59 (72) 98 12/31/17 20:49 98.4 60 18 105/64 (78) 97 12/31/17 20:25 98 21 12/31/17 18:35 97.8 69 18 107/53 (71) 98 12/31/17 18:00 59 20 99/59 (72) 100 Room Air 12/31/17 17:45 60 24 107/65 (79) 97 Room Air 12/31/17 17:30 74 24 103/64 (77) 99 Room Air 12/31/17 17:23 97.5 90 16 114/65 (81) 99 Room Air 12/31/17 16:30 98.8 106 18 119/64 (82) 96 12/31/17 16:10 97.7 67 18 108/66 (80) 100 12/31/17 13:42 98.0 64 16 100/55 (70) 97 I/O 12/31/17 12/31/17 12/31/17 01/01/18 01/01/18 01/01/18 07:00 15:00 23:00 07:00 15:00 23:00 Intake Total 476 ml 1000 ml 400 ml 1300 ml Output Total 15 ml Balance 476 ml 1000 ml 400 ml 1285 ml Intake Oral 0 ml IV Total 476 ml 1000 ml Other 400 ml 1300 ml Output Estimated Blood Loss 15 ml # Voids 2 4 # Bowel Movements 0 Result Diagram: 12/31/17 0545 01/01/18 0348 Imaging Last Impressions Cholangiogram 01/01/18 Signed Impressions: Service Date/Time: Monday, January 01, 2018 08:21 - CONCLUSION: Cannot verify unobstructed flow into the duodenum. Americo King MD FACR Gall Bladder Ultrasound 12/31/17 Signed Impressions: Service Date/Time: December 12:38 - CONCLUSION: Intra-and extra-hepatic biliary ductal dilatation. Gallstones and gallbladder wall thickening. Kody Hicks MD GI Procedure 12/31/17 Signed Impressions: Service Date/Time: December 17:13 - CONCLUSION: ERCP as above. Pradeep King MD Cholangiopancreatography MRI 12/31/17 Signed Impressions: Service Date/Time: December 19:28 - CONCLUSION: 1. Mildly distended common bile duct for a patient this age but no persistent or recurrent ductal stones. 2. Cholelithiasis. Pericholecystic fluid and mild wall thickening noted. Kody Brito MD Abdomen/Pelvis CT 12/30/172002 Signed Impressions: Service Date/Time: Saturday, December 30, 2017 20:48 - CONCLUSION: 1. Multiple gallstones in the gallbladder. 2. There appears to be some dilatation the common bile duct and biliary tree suggestive of some biliary tract obstruction. 3. Right ovarian cyst measuring 3.6 cm. 4. IUD in uterus. Mayur Maradiaga MD Objective Remarks GENERAL: This is a well-nourished, well-developed patient, in no apparent distress. ENT: Airway patent. NECK: Trachea midline. CARDIOVASCULAR: Regular rate and rhythm without murmurs RESPIRATORY: Clear to auscultation. Breath sounds equal bilaterally. No wheezes GASTROINTESTINAL: Abdomen soft, appropriately tender, Steri-Strips in place, Dry clean and intact MUSCULOSKELETAL: Extremities without edema. NEUROLOGICAL: Awake and alert. Normal speech. A/P Assessment and Plan symptomatic cholelithiasis CBD dilation. Suspect CBD stone. LFT abnormalities secondary to biliary obstruction Obstructive jaundice Plan: Patient is status post ERCP with sphincterotomy, stone removal by sweeping the duct with balloons, brushing of the hepatic ducts. Patient also underwent lap antoinette pod 0. diet has been advanced to cleared. Pain management and DVT prophylaxis per general surgery Continue IV hydration. GI also following. Vitals has been stable. LFTs are trending down. Gallbladder and cytology pending Discharge Planning She is postop day 0. Awaiting clearance from consultants. Sheri Carr MD Jan 01, 2018 11:30
[2018-01-01 12:00] VITALS: BP 103/70; PULSE 68; RESP 17; TEMP 96.3; O2SAT 100
[2018-01-01] MEDS ORDERED: GLYCOPYRROLATE 1 MG/5 ML SYRINGE IV PUSH ONE (12:00)
[2018-01-01] MEDS ORDERED: NEOSTIGMINE 5 MG/5 ML SYRINGE IV PUSH ONE (12:00)
[2018-01-01] MEDS ORDERED: ONDANSETRON HCL 4 MG/2 ML VIAL IV ONE ×2 (12:00)
[2018-01-01] MEDS ORDERED: SUCCINYLCHOLINE CHLORIDE 200 MG/10 ML VIAL IV ONE (12:00)
[2018-01-01] MEDS ORDERED: KETOROLAC TROMETHAMINE 30 MG/ML (IVP) VIAL IV PUSH ONE (12:00)
[2018-01-01] MEDS ORDERED: PROPOFOL 200 MG/20 ML AMP IV ONE ×2 (12:00)
[2018-01-01] MEDS ORDERED: ROCURONIUM INJ 50 MG/5 ML SYRINGE IV PUSH ONE (12:00)
[2018-01-01] MEDS ORDERED: DEXAMETHASONE SOD PHOS 4 MG/ML VIAL IV ONE ×2 (12:00)
[2018-01-01] MEDS ORDERED: LIDOCAINE HCL 1% PF 5 ML SYRINGE OTHER ONE ×2 (12:00)
[2018-01-01] MEDS: SODIUM CHLORIDE 0.9% FLUSH 10 ML FLUSH IV FLUSH SCH ×2 (12:03→21:00)
--- NOTE | 2018-01-01 14:18 | HHI.GIFU ---
Subjective Remarks ` Patient is awake, resting in the bed Tolerating clear liquids without nausea or vomiting Has some mild abdominal tenderness but feeling much better Afebrile Family members in (Osiris Rodriguez) Objective Vitals I&O Vital Signs Date Time Temp Pulse Resp B/P (MAP) Pulse Ox O2 Delivery O2 Flow Rate FiO2 01/01/18 12:00 96.3 68 17 103/70 (81) 100 01/01/18 10:19 96.4 63 17 99/61 (74) 99 01/01/18 10:00 70 16 99/62 (74) 99 Room Air 01/01/18 09:45 72 16 102/62 (75) 98 Room Air 01/01/18 09:30 97.7 77 16 97/55 (69) 98 Nasal Cannula 2 01/01/18 00:03 97.6 80 17 99/59 (72) 98 12/31/17 20:49 98.4 60 18 105/64 (78) 97 12/31/17 20:25 98 21 12/31/17 18:35 97.8 69 18 107/53 (71) 98 12/31/17 18:00 59 20 99/59 (72) 100 Room Air 12/31/17 17:45 60 24 107/65 (79) 97 Room Air 12/31/17 17:30 74 24 103/64 (77) 99 Room Air 12/31/17 17:23 97.5 90 16 114/65 (81) 99 Room Air 12/31/17 16:30 98.8 106 18 119/64 (82) 96 12/31/17 16:10 97.7 67 18 108/66 (80) 100 I/O 12/31/17 12/31/17 12/31/17 01/01/18 01/01/18 01/01/18 07:00 15:00 23:00 07:00 15:00 23:00 Intake Total 476 ml 1000 ml 400 ml 1300 ml Output Total 15 ml Balance 476 ml 1000 ml 400 ml 1285 ml Intake Oral 0 ml IV Total 476 ml 1000 ml Other 400 ml 1300 ml Output Estimated Blood Loss 15 ml # Voids 2 4 # Bowel Movements 0 Laboratory Laboratory Tests Test 01/01/18 03:48 Blood Urea Nitrogen 7 Creatinine 0.67 Random Glucose 96 Total Protein 7.0 Albumin 3.6 Calcium Level 8.5 Alkaline Phosphatase 234 Aspartate Amino Transf (AST/SGOT) 191 Alanine Aminotransferase (ALT/SGPT) 315 Total Bilirubin 7.3 Sodium Level 137 Potassium Level 3.9 Chloride Level 107 Carbon Dioxide Level 20.8 Anion Gap 9 Estimat Glomerular Filtration Rate 97 Imaging Last Impressions Cholangiogram 01/01/18 Signed Impressions: Service Date/Time: Monday, January 01, 2018 08:21 - CONCLUSION: Cannot verify unobstructed flow into the duodenum. Americo King MD FACR Gall Bladder Ultrasound 12/31/17 Signed Impressions: Service Date/Time: December 12:38 - CONCLUSION: Intra-and extra-hepatic biliary ductal dilatation. Gallstones and gallbladder wall thickening. Kody Hicks MD GI Procedure 12/31/17 Signed Impressions: Service Date/Time: December 17:13 - CONCLUSION: ERCP as above. Pradeep King MD Cholangiopancreatography MRI 12/31/17 Signed Impressions: Service Date/Time: December 19:28 - CONCLUSION: 1. Mildly distended common bile duct for a patient this age but no persistent or recurrent ductal stones. 2. Cholelithiasis. Pericholecystic fluid and mild wall thickening noted. Kody Brito MD Abdomen/Pelvis CT 12/30/172002 Signed Impressions: Service Date/Time: Saturday, December 30, 2017 20:48 - CONCLUSION: 1. Multiple gallstones in the gallbladder. 2. There appears to be some dilatation the common bile duct and biliary tree suggestive of some biliary tract obstruction. 3. Right ovarian cyst measuring 3.6 cm. 4. IUD in uterus. Mayur Maradiaga MD Physical Exam HEENT: Pupils round and reactive to light; normocephalic; atraumatic; no jaundice. Throat is clean NECK: Neck is supple, no JVD, no lymphadenopathy. CHEST: Chest is clear to auscultation and percussion. CARDIAC: Regular rate and rhythm . ABDOMEN: Soft, nondistended, mild tenderness to light touch especially in right upper quadrant and upper abdomen; no hepatosplenomegaly; bowel sounds soft , greater in the upper quadrants. EXTREMITIES: No clubbing, cyanosis, or edema. SKIN: Normal; no rash; no jaundice. NUCLEAR EQUIPMENT TEST ENGINEER: No focal deficits; alert and oriented times three. (Osiris Rodriguez) Assessment and Plan Assessment: (1) Common bile duct obstruction ICD Codes: K83.1 - Obstruction of bile duct Status: Acute Plan Cholelithiasis Elevated LFTs Nausea Anemia, now status post cholecystectomy, no active bleeding noted Right upper quadrant and upper abdominal pain -Initially admitted with abd pain, elevated LFTs - patient had gallbladder ultrasound and MRCP initially. ERCP with sphincterotomy performed on 12/31/17 without any complications. Gallbladder ultrasound on 12/31/17 showed intra-and extrahepatic biliary dilatation. Positive for gallstones in gallbladder wall thickening. GS consult appreciated. Patient had cholecystectomy on 01/01/18 and is postop in the room drinking clear liquids. Patient has some generalized soreness in her right upper quadrant and upper abdomen, nausea and any vomiting has subsided. WBC count elevation resolving PLAN - Advance diet if patient's nausea and vomiting stays controlled. - For any acute bleeding -Monitor labs, especially attention to hemoglobin -Encourage coughing turning deep breathing and increased activity - Anti-bowel regimen monitor for normal BM postop pt seen by myself and Dr Mcneal, note written on her behalf (Osiris Rodriguez) Physician Comments seen, examined agree with above s/p cholecystectomy , intraop cholangiogram cannot exclude distal obstruction mrcp- dilated cbd s/p ercp with sphincterotomy and stone removal, questionable stricture of common hepatic duct s/p brushing fu brushing monitor lfts if no improvement may need repeat ercp (Fiorella Mcneal MD) Osiris Rodriguez Jan 01, 2018 14:18 Fiorella Mcneal MD Jan 01, 2018 20:56
[2018-01-01 16:00] VITALS: BP 98/60; PULSE 73; RESP 17; TEMP 97.1; O2SAT 99
[2018-01-01 20:00] VITALS: BP 105/64; PULSE 80; RESP 18; TEMP 96.7; O2SAT 98
[2018-01-01] MEDS: ONDANSETRON HCL 4 MG/2 ML VIAL IVP PRN (21:27)
[2018-01-01] MEDS ORDERED: CHLORHEXIDINE GLUCONATE 2 % 1 PACK (2 CLOTHS) TOPICAL PRN (23:15)
[2018-01-01] MEDS ORDERED: POVIDONE IODINE 5% (ANTISEPSIS KIT) 4 APPLICATIONS EACH NARE PRN (23:15)
[2018-01-01] MEDS ORDERED: LACTATED RINGER'S 1000 ML IV PRN (23:15)
[2018-01-02] VITALS: BP 93/54; PULSE 65; RESP 16; TEMP 97.6; O2SAT 97
[2018-01-02] MEDS: PIPERACIL-TAZO 4.5 GM PREMIX 100 ML IV SCH ×4 (02:08→20:18)
[2018-01-02 08:00] VITALS: BP 99/60; PULSE 59; RESP 18; TEMP 97; O2SAT 97
[2018-01-02 08:27] LABS: AUTOMATED NEUTROPHIL # 8.1 TH/MM3 (1.8-7.7); BASOPHIL # 0.1 TH/MM3 (0-0.2); BASOPHIL % 0.5 % (0.0-2.0); EOSINOPHIL # 0.1 TH/MM3 (0-0.4); EOSINOPHIL % 1.1 % (0.0-4.0); HEMATOCRIT 31.5 % (35.0-46.0); HEMOGLOBIN 10.8 GM/DL (11.6-15.3); LYMPH % 23.7 % (9.0-44.0); LYMPHOCYTE # 2.9 TH/MM3 (1.0-4.8); MEAN CELL VOLUME 94.1 FL (80.0-100.0); MEAN CORPUSCULAR HEMOGLOBIN 32.4 PG (27.0-34.0); MEAN CORPUSCULAR HGB CONC 34.4 % (32.0-36.0); MEAN PLATELET VOLUME 11.2 FL (7.0-11.0); MONO % 7.2 % (0.0-8.0); MONOCYTE # 0.9 TH/MM3 (0-0.9); NEUT % 67.5 % (16.0-70.0); PLATELET COUNT 153 TH/MM3 (150-450); RED BLOOD COUNT 3.35 MIL/MM3 (4.00-5.30); RED CELL DISTRIBUTION WIDTH 13.6 % (11.6-17.2); WHITE BLOOD COUNT 12.1 TH/MM3 (4.0-11.0)
[2018-01-02 08:40] LABS: ALBUMIN 2.6 GM/DL (3.4-5.0); ALT (GPT) 245 U/L (10-53); AST (GOT) 142 U/L (15-37); BICARBONATE 24.8 MEQ/L (21.0-32.0); BLOOD UREA NITROGEN 7 MG/DL (7-18); CHLORIDE 110 MEQ/L (98-107); CREATININE 0.73 MG/DL (0.50-1.00); GLOMERULAR FILTRATION RATE 88 ML/MIN (>89); GLUCOSE,RANDOM 88 MG/DL (74-106); SODIUM (NA) 142 MEQ/L (136-145)
[2018-01-02 08:46] LABS: ALKALINE PHOSPHATASE 133 U/L (45-117); TOTAL BILIRUBIN ADULT 2.2 MG/DL (0.2-1.0); TOTAL PROTEIN 5.1 GM/DL (6.4-8.2)
[2018-01-02] MEDS: SODIUM CHLORIDE 0.9% FLUSH 10 ML FLUSH IV FLUSH SCH ×2 (09:00→20:18)
[2018-01-02] MEDS: DOCUSATE SODIUM 50 MG/SENNA 8.6 MG TAB PO SCH ×2 (09:00→20:19)
[2018-01-02] MEDS: SODIUM CHLOR 0.9% 1000 ML INJ 1,000 ML IV SCH (09:42)
[2018-01-02 12:00] VITALS: BP 105/65; PULSE 57; RESP 17; TEMP 97; O2SAT 100; O2SAT 98
--- NOTE | 2018-01-02 13:46 | HHI.PR ---
Subjective Subjective Notes feels better, postop pain Objective Vitals/I&O Vital Signs Date Time Temp Pulse Resp B/P (MAP) Pulse Ox O2 Delivery O2 Flow Rate FiO2 01/02/18 12:00 98 01/02/18 12:00 97.0 57 17 105/65 (78) 01/01/18 10:00 Room Air 01/01/18 09:30 2 12/31/17 20:25 21 Labs Laboratory Tests Test 01/02/18 07:31 White Blood Count 12.1 Red Blood Count 3.35 Hemoglobin 10.8 Hematocrit 31.5 Mean Corpuscular Volume 94.1 Mean Corpuscular Hemoglobin 32.4 Mean Corpuscular Hemoglobin Concent 34.4 Red Cell Distribution Width 13.6 Platelet Count 153 Mean Platelet Volume 11.2 Neutrophils (%) (Auto) 67.5 Lymphocytes (%) (Auto) 23.7 Monocytes (%) (Auto) 7.2 Eosinophils (%) (Auto) 1.1 Basophils (%) (Auto) 0.5 Neutrophils # (Auto) 8.1 Lymphocytes # (Auto) 2.9 Monocytes # (Auto) 0.9 Eosinophils # (Auto) 0.1 Basophils # (Auto) 0.1 CBC Comment DIFF FINAL Differential Comment Blood Urea Nitrogen 7 Creatinine 0.73 Random Glucose 88 Total Protein 5.1 Albumin 2.6 Calcium Level 8.0 Alkaline Phosphatase 133 Aspartate Amino Transf (AST/SGOT) 142 Alanine Aminotransferase (ALT/SGPT) 245 Total Bilirubin 2.2 Sodium Level 142 Potassium Level 3.5 Chloride Level 110 Carbon Dioxide Level 24.8 Anion Gap 7 Estimat Glomerular Filtration Rate 88 Abdomen: Non-distended, Post-op tenderness Narrative Exam incision c/d/i A/P Assessment and Plan 42yo female s/p lap antoinette for CBD stones, stable. advance diet follow labs. if LFT increase will need repeat imaging, if decrease can DC and fu with repeat labs as outpatient. Tony Pizarro MD Jan 02, 2018 13:46
[2018-01-02 13:54] LABS: AUTOMATED NEUTROPHIL # 8.1 TH/MM3 (1.8-7.7); BASOPHIL # 0.1 TH/MM3 (0-0.2); BASOPHIL % 0.4 % (0.0-2.0); EOSINOPHIL # 0.1 TH/MM3 (0-0.4); EOSINOPHIL % 1.2 % (0.0-4.0); HEMATOCRIT 33.1 % (35.0-46.0); LYMPHOCYTE # 2.9 TH/MM3 (1.0-4.8); MEAN CELL VOLUME 94.9 FL (80.0-100.0); MEAN CORPUSCULAR HEMOGLOBIN 31.5 PG (27.0-34.0); MEAN CORPUSCULAR HGB CONC 33.2 % (32.0-36.0); MEAN PLATELET VOLUME 11.1 FL (7.0-11.0); MONO % 7.2 % (0.0-8.0); MONOCYTE # 0.9 TH/MM3 (0-0.9); NEUT % 67.2 % (16.0-70.0); PLATELET COUNT 161 TH/MM3 (150-450); RED BLOOD COUNT 3.49 MIL/MM3 (4.00-5.30)
[2018-01-02 14:23] LABS: ALBUMIN 2.8 GM/DL (3.4-5.0); BICARBONATE 24.9 MEQ/L (21.0-32.0); CALCIUM 7.4 MG/DL (8.5-10.1); CALCIUM-PROTEIN CORRECTED 8.3 MG/DL (8.5-10.1); CREATININE 0.7 MG/DL (0.50-1.00); TOTAL BILIRUBIN ADULT 1.7 MG/DL (0.2-1.0); TOTAL PROTEIN 5.4 GM/DL (6.4-8.2)
--- NOTE | 2018-01-02 15:40 | HHI.PR ---
Subjective Remarks Upon meeting patient for the first time today, she asks me when she is going home. She says she feels much better. I explained how elevated her liver enzymes are, but that the trend is definitely downward. I offered her regular food with advice to start cautiously, she was happy about that. Objective Vitals Vital Signs Date Time Temp Pulse Resp B/P (MAP) Pulse Ox O2 Delivery O2 Flow Rate FiO2 01/02/18 12:00 98 01/02/18 12:00 97.0 57 17 105/65 (78) 100 01/02/18 08:00 97.0 59 18 99/60 (73) 97 01/02/18 00:00 97.6 65 16 93/54 (67) 97 01/01/18 20:00 96.7 80 18 105/64 (78) 98 01/01/18 16:00 97.1 73 17 98/60 (73) 99 I/O 01/01/18 01/01/18 01/01/18 01/02/18 01/02/18 01/02/18 07:00 15:00 23:00 07:00 15:00 23:00 Intake Total 1300 ml 2640 ml 880 ml 450 ml Output Total 15 ml Balance 1285 ml 2640 ml 880 ml 450 ml Intake Oral 1440 ml 780 ml IV Total 1200 ml 100 ml 450 ml Other 1300 ml Output Estimated Blood Loss 15 ml # Voids 4 4 4 # Bowel Movements 0 Result Diagram: 01/02/18 1311 01/02/18 1311 Objective Remarks GENERAL: Well-nourished, well-developed patient, no apparent distress SKIN: Warm and dry. HEAD: Normocephalic. EYES: No scleral icterus. No injection or drainage. NECK: Supple, trachea midline. No JVD or lymphadenopathy. CARDIOVASCULAR: Regular rate and rhythm without murmurs, gallops, or rubs. RESPIRATORY: Breath sounds equal bilaterally. No accessory muscle use. GASTROINTESTINAL: Abdomen soft, non-tender, nondistended. EXTREMITIES: No cyanosis, or edema. NEUROLOGICAL: Awake, alert, and oriented x 3. Non-focal. A/P Problem List: (1) Common bile duct obstruction ICD Code: K83.1 - Obstruction of bile duct Status: Acute Assessment and Plan Symptomatic Cholelithiasis with Obstructive Jaundice Common Bile Duct stone removed during ERCP Underwent Lap Cholecystectomy Pain well controlled, no nausea or vomiting, requesting good today, POD #1 LFT trending downwards at a healthy rate Gallbladder cytology pending Will advance diet today DVT Prophylaxis SCD hose Discharge Planning If tolerating PO and if LFT's are down once again tomorrow compared to today, will plan for discharge home with outpatient follow up Ismael Ansari MD Jan 02, 2018 15:40
[2018-01-02 16:00] VITALS: BP 98/56; PULSE 70; RESP 17; TEMP 97; O2SAT 100
--- NOTE | 2018-01-02 16:08 | HHI.GIFU ---
Subjective Remarks Pt resting in bed. Tolerating diet. Some soreness to RUQ at site of cholecystectomy. Denies nausea, vomiting. Has not had BM (Liliam Hollingsworth) Objective Vitals I&O Vital Signs Date Time Temp Pulse Resp B/P (MAP) Pulse Ox O2 Delivery O2 Flow Rate FiO2 01/02/18 12:00 98 01/02/18 12:00 97.0 57 17 105/65 (78) 100 01/02/18 08:00 97.0 59 18 99/60 (73) 97 01/02/18 00:00 97.6 65 16 93/54 (67) 97 01/01/18 20:00 96.7 80 18 105/64 (78) 98 I/O 01/01/18 01/01/18 01/01/18 01/02/18 01/02/18 01/02/18 07:00 15:00 23:00 07:00 15:00 23:00 Intake Total 1300 ml 2640 ml 880 ml 450 ml Output Total 15 ml Balance 1285 ml 2640 ml 880 ml 450 ml Intake Oral 1440 ml 780 ml IV Total 1200 ml 100 ml 450 ml Other 1300 ml Output Estimated Blood Loss 15 ml # Voids 4 4 4 # Bowel Movements 0 Laboratory Laboratory Tests Test 01/02/18 07:31 01/02/18 13:11 White Blood Count 12.1 12.0 Red Blood Count 3.35 3.49 Hemoglobin 10.8 11.0 Hematocrit 31.5 33.1 Mean Corpuscular Volume 94.1 94.9 Mean Corpuscular Hemoglobin 32.4 31.5 Mean Corpuscular Hemoglobin Concent 34.4 33.2 Red Cell Distribution Width 13.6 14.0 Platelet Count 153 161 Mean Platelet Volume 11.2 11.1 Neutrophils (%) (Auto) 67.5 67.2 Lymphocytes (%) (Auto) 23.7 24.0 Monocytes (%) (Auto) 7.2 7.2 Eosinophils (%) (Auto) 1.1 1.2 Basophils (%) (Auto) 0.5 0.4 Neutrophils # (Auto) 8.1 8.1 Lymphocytes # (Auto) 2.9 2.9 Monocytes # (Auto) 0.9 0.9 Eosinophils # (Auto) 0.1 0.1 Basophils # (Auto) 0.1 0.1 CBC Comment DIFF FINAL DIFF FINAL Differential Comment Blood Urea Nitrogen 7 6 Creatinine 0.73 0.70 Random Glucose 88 81 Total Protein 5.1 5.4 Albumin 2.6 2.8 Calcium Level 8.0 7.4 Alkaline Phosphatase 133 146 Aspartate Amino Transf (AST/SGOT) 142 131 Alanine Aminotransferase (ALT/SGPT) 245 250 Total Bilirubin 2.2 1.7 Sodium Level 142 143 Potassium Level 3.5 3.1 Chloride Level 110 111 Carbon Dioxide Level 24.8 24.9 Anion Gap 7 7 Estimat Glomerular Filtration Rate 88 92 Protein Corrected Calcium 8.3 Imaging Last Impressions Cholangiogram 01/01/18 Signed Impressions: Service Date/Time: Monday, January 01, 2018 08:21 - CONCLUSION: Cannot verify unobstructed flow into the duodenum. Americo King MD FACR Gall Bladder Ultrasound 12/31/17 Signed Impressions: Service Date/Time: December 12:38 - CONCLUSION: Intra-and extra-hepatic biliary ductal dilatation. Gallstones and gallbladder wall thickening. Kody Hicks MD GI Procedure 12/31/17 Signed Impressions: Service Date/Time: December 17:13 - CONCLUSION: ERCP as above. Pradeep King MD Cholangiopancreatography MRI 12/31/17 Signed Impressions: Service Date/Time: December 19:28 - CONCLUSION: 1. Mildly distended common bile duct for a patient this age but no persistent or recurrent ductal stones. 2. Cholelithiasis. Pericholecystic fluid and mild wall thickening noted. Kody Brito MD Abdomen/Pelvis CT 12/30/172002 Signed Impressions: Service Date/Time: Saturday, December 30, 2017 20:48 - CONCLUSION: 1. Multiple gallstones in the gallbladder. 2. There appears to be some dilatation the common bile duct and biliary tree suggestive of some biliary tract obstruction. 3. Right ovarian cyst measuring 3.6 cm. 4. IUD in uterus. Mayur Maradiaga MD Physical Exam HEENT: Normocephalic; atraumatic CHEST: Even/unlabored CARDIAC: RRR ABDOMEN: Soft, nondistended, abdomen sore from recent cholecystectomy, bowel sounds active EXTREMITIES: No clubbing, cyanosis, or edema. SKIN: Normal; no rash; no jaundice. 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 (Liliam Hollingsworth) Assessment and Plan Assessment: (1) Common bile duct obstruction ICD Codes: K83.1 - Obstruction of bile duct Status: Acute Plan Cholelithiasis Elevated LFTs Nausea Anemia, now status post cholecystectomy, no active bleeding noted Right upper quadrant and upper abdominal pain -Initially admitted with abd pain, elevated LFTs - patient had gallbladder ultrasound and MRCP initially. ERCP with sphincterotomy performed on 12/31/17 without any complications. Gallbladder ultrasound on 12/31/17 showed intra-and extrahepatic biliary dilatation. Positive for gallstones in gallbladder wall thickening. GS consult appreciated. Patient had cholecystectomy on 01/01/18 and is postop in the room drinking clear liquids. Patient has some generalized soreness in her right upper quadrant and upper abdomen, nausea and any vomiting has subsided. WBC count elevation resolving (01/02) S/P cholecystectomy yesterday--> Cholangiogram cannot verify unobstructed flow into the duodenum. Pt reports improvement in pain. Tolerating diet. Denies nausea, vomiting. LFTs improved from yesterday. PLAN - KIKO - Monitor LFTs - Supportive care - If symptoms continue to improve and LFTs trend down may not need repeat MRCP - Further recommendations to follow based on clinical course Pt has been seen and examined by myself and Dr. Ulloa and this note is written on his behalf (Liliam Hollingsworth) Physician Comments Patient seen and examined Agree with above Continue with current supportive care Monitor labs If labs continue to trend downwards then all is resolved from a GI standpoint, await repeat labs in a.m. (Arslan Ulloa MD) Liliam Hollingsworth Jan 02, 2018 16:08 Arslan Ulloa MD Jan 02, 2018 23:29
[2018-01-02 19:53] VITALS: O2SAT 98
[2018-01-02 20:00] VITALS: BP 101/60; PULSE 72; RESP 22; TEMP 96.6; O2SAT 100
[2018-01-02] MEDS: ONDANSETRON HCL 4 MG/2 ML VIAL IVP PRN (20:20)
[2018-01-03] VITALS: BP 102/56; PULSE 62; RESP 20; TEMP 96.8; O2SAT 96
[2018-01-03] MEDS: PIPERACIL-TAZO 4.5 GM PREMIX 100 ML IV SCH ×3 (02:11→14:00)
[2018-01-03 08:00] VITALS: BP 105/68; PULSE 62; RESP 18; TEMP 97.4; O2SAT 95
[2018-01-03] MEDS: DOCUSATE SODIUM 50 MG/SENNA 8.6 MG TAB PO SCH (08:49)
[2018-01-03] MEDS: SODIUM CHLORIDE 0.9% FLUSH 10 ML FLUSH IV FLUSH SCH (08:49)
[2018-01-03 10:48] LABS: ALBUMIN 2.8 GM/DL (3.4-5.0); AST (GOT) 129 U/L (15-37); BICARBONATE 26.8 MEQ/L (21.0-32.0); BLOOD UREA NITROGEN 6 MG/DL (7-18); CALCIUM 8.1 MG/DL (8.5-10.1); CHLORIDE 107 MEQ/L (98-107); CREATININE 0.84 MG/DL (0.50-1.00); GLOMERULAR FILTRATION RATE 75 ML/MIN (>89); GLUCOSE,RANDOM 100 MG/DL (74-106); SODIUM (NA) 141 MEQ/L (136-145)
[2018-01-03 10:52] LABS: ALKALINE PHOSPHATASE 147 U/L (45-117); ALT (GPT) 261 U/L (10-53); TOTAL BILIRUBIN ADULT 1.8 MG/DL (0.2-1.0); TOTAL PROTEIN 5.6 GM/DL (6.4-8.2)
[2018-01-03 12:00] VITALS: BP 94/56; PULSE 74; RESP 18; TEMP 96.1; O2SAT 95
--- NOTE | 2018-01-03 12:08 | HHI.GIFU ---
Subjective Remarks Pt resting in bed comfortably. walking the hallways today. Denies nausea, vomiting. Some abdominal soreness localized to recent cholecystectomy site. Tolerating regular diet. States attending planning on discharging today. (Liliam Hollingsworth) Objective Vitals I&O Vital Signs Date Time Temp Pulse Resp B/P (MAP) Pulse Ox O2 Delivery O2 Flow Rate FiO2 01/03/18 08:00 97.4 62 18 105/68 (80) 95 01/03/18 00:00 96.8 62 20 102/56 (71) 96 01/02/18 20:00 96.6 72 22 101/60 (74) 100 01/02/18 19:53 98 21 01/02/18 16:00 97.0 70 17 98/56 (70) 100 I/O 01/02/18 01/02/18 01/02/18 01/03/18 01/03/18 01/03/18 07:00 15:00 23:00 07:00 15:00 23:00 Intake Total 880 ml 450 ml 1410 ml 580 ml Balance 880 ml 450 ml 1410 ml 580 ml Intake Oral 780 ml 960 ml 480 ml IV Total 100 ml 450 ml 450 ml 100 ml # Voids 4 3 3 # Bowel Movements 0 0 Laboratory Laboratory Tests Test 01/02/18 13:11 01/03/18 09:57 White Blood Count 12.0 Red Blood Count 3.49 Hemoglobin 11.0 Hematocrit 33.1 Mean Corpuscular Volume 94.9 Mean Corpuscular Hemoglobin 31.5 Mean Corpuscular Hemoglobin Concent 33.2 Red Cell Distribution Width 14.0 Platelet Count 161 Mean Platelet Volume 11.1 Neutrophils (%) (Auto) 67.2 Lymphocytes (%) (Auto) 24.0 Monocytes (%) (Auto) 7.2 Eosinophils (%) (Auto) 1.2 Basophils (%) (Auto) 0.4 Neutrophils # (Auto) 8.1 Lymphocytes # (Auto) 2.9 Monocytes # (Auto) 0.9 Eosinophils # (Auto) 0.1 Basophils # (Auto) 0.1 CBC Comment DIFF FINAL Differential Comment Blood Urea Nitrogen 6 6 Creatinine 0.70 0.84 Random Glucose 81 100 Total Protein 5.4 5.6 Albumin 2.8 2.8 Calcium Level 7.4 8.1 Alkaline Phosphatase 146 147 Aspartate Amino Transf (AST/SGOT) 131 129 Alanine Aminotransferase (ALT/SGPT) 250 261 Total Bilirubin 1.7 1.8 Sodium Level 143 141 Potassium Level 3.1 3.2 Chloride Level 111 107 Carbon Dioxide Level 24.9 26.8 Anion Gap 7 7 Estimat Glomerular Filtration Rate 92 75 Protein Corrected Calcium 8.3 Imaging Last Impressions Cholangiogram 01/01/18 Signed Impressions: Service Date/Time: Monday, January 01, 2018 08:21 - CONCLUSION: Cannot verify unobstructed flow into the duodenum. Americo King MD FACR Gall Bladder Ultrasound 12/31/17 Signed Impressions: Service Date/Time: December 12:38 - CONCLUSION: Intra-and extra-hepatic biliary ductal dilatation. Gallstones and gallbladder wall thickening. Kody Hicks MD GI Procedure 12/31/17 Signed Impressions: Service Date/Time: December 17:13 - CONCLUSION: ERCP as above. Pradeep King MD Cholangiopancreatography MRI 12/31/17 Signed Impressions: Service Date/Time: December 19:28 - CONCLUSION: 1. Mildly distended common bile duct for a patient this age but no persistent or recurrent ductal stones. 2. Cholelithiasis. Pericholecystic fluid and mild wall thickening noted. Kody Brito MD Abdomen/Pelvis CT 12/30/172002 Signed Impressions: Service Date/Time: Saturday, December 30, 2017 20:48 - CONCLUSION: 1. Multiple gallstones in the gallbladder. 2. There appears to be some dilatation the common bile duct and biliary tree suggestive of some biliary tract obstruction. 3. Right ovarian cyst measuring 3.6 cm. 4. IUD in uterus. Mayur Maradiaga MD Physical Exam HEENT: Normocephalic; atraumatic CHEST: Even/unlabored CARDIAC: RRR ABDOMEN: Soft, nondistended, abdomen sore from recent cholecystectomy, bowel sounds active EXTREMITIES: No clubbing, cyanosis, or edema. SKIN: Normal; no rash; no jaundice. 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 (Liliam Hollingsworth) Assessment and Plan Assessment: (1) Common bile duct obstruction ICD Codes: K83.1 - Obstruction of bile duct Status: Acute Plan Cholelithiasis Elevated LFTs Nausea Anemia, now status post cholecystectomy, no active bleeding noted Right upper quadrant and upper abdominal pain -Initially admitted with abd pain, elevated LFTs - patient had gallbladder ultrasound and MRCP initially. ERCP with sphincterotomy performed on 12/31/17 without any complications. Gallbladder ultrasound on 12/31/17 showed intra-and extrahepatic biliary dilatation. Positive for gallstones in gallbladder wall thickening. GS consult appreciated. Patient had cholecystectomy on 01/01/18 and is postop in the room drinking clear liquids. Patient has some generalized soreness in her right upper quadrant and upper abdomen, nausea and any vomiting has subsided. WBC count elevation resolving (01/02) S/P cholecystectomy yesterday--> Cholangiogram cannot verify unobstructed flow into the duodenum. Pt reports improvement in pain. Tolerating diet. Denies nausea, vomiting. LFTs improved from yesterday. (01/03) --> LFTs remain about the same today. Clinically pt is improving. Tolerating regular diet with no nausea or vomiting. Reports some continued abdominal soreness but localized to recent cholecystectomy site. Per pt, Dr. Ansari is planning on discharging today. PLAN - KIKO - Monitor LFTs closely - Supportive care - Further recommendations to follow based on clinical course Pt has been seen and examined by myself and Dr. Ulloa and this note is written on his behalf (Liliam Hollingsworth) Physician Comments patient seen and examined agree with above monitor labs continue present supportive care (Arslan Ulloa MD) Liliam Hollingsworth Jan 03, 2018 12:08 Arslan Ulloa MD Jan 03, 2018 22:44
[2018-01-03] MEDS ORDERED: TYLETAB34 PO (13:08)
--- NOTE | 2018-01-03 13:16 | HHI.PR ---
cc: Bao Fraire MD Subjective Subjective Notes DAILY PROGRESS NOTE FOR SURGICAL ATTENDING, DR. BAO FRAIRE Eating breakfast Minimal discomfort Objective Vitals/I&O Vital Signs Date Time Temp Pulse Resp B/P (MAP) Pulse Ox O2 Delivery O2 Flow Rate FiO2 01/03/18 12:00 96.1 74 18 94/56 (69) 95 01/02/18 19:53 21 01/01/18 10:00 Room Air 01/01/18 09:30 2 Labs Laboratory Tests Test 01/03/18 09:57 Blood Urea Nitrogen 6 Creatinine 0.84 Random Glucose 100 Total Protein 5.6 Albumin 2.8 Calcium Level 8.1 Alkaline Phosphatase 147 Aspartate Amino Transf (AST/SGOT) 129 Alanine Aminotransferase (ALT/SGPT) 261 Total Bilirubin 1.8 Sodium Level 141 Potassium Level 3.2 Chloride Level 107 Carbon Dioxide Level 26.8 Anion Gap 7 Estimat Glomerular Filtration Rate 75 Radiology Last Impressions Cholangiogram 01/01/18 Signed Impressions: Service Date/Time: Monday, January 01, 2018 08:21 - CONCLUSION: Cannot verify unobstructed flow into the duodenum. Americo King MD FACR Gall Bladder Ultrasound 12/31/17 Signed Impressions: Service Date/Time: December 12:38 - CONCLUSION: Intra-and extra-hepatic biliary ductal dilatation. Gallstones and gallbladder wall thickening. Kody Hicsk MD GI Procedure 12/31/17 Signed Impressions: Service Date/Time: December 17:13 - CONCLUSION: ERCP as above. Pradeep King MD Cholangiopancreatography MRI 12/31/17 Signed Impressions: Service Date/Time: December 19:28 - CONCLUSION: 1. Mildly distended common bile duct for a patient this age but no persistent or recurrent ductal stones. 2. Cholelithiasis. Pericholecystic fluid and mild wall thickening noted. Kody Brito MD Abdomen/Pelvis CT 12/30/172002 Signed Impressions: Service Date/Time: Saturday, December 30, 2017 20:48 - CONCLUSION: 1. Multiple gallstones in the gallbladder. 2. There appears to be some dilatation the common bile duct and biliary tree suggestive of some biliary tract obstruction. 3. Right ovarian cyst measuring 3.6 cm. 4. IUD in uterus. Mayur Maradiaga MD Cardiovascular: Regular Lungs: Clear Abdomen: Non-distended, Post-op tenderness Extremities: SCD's on A/P Problem List: (1) Status post laparoscopic cholecystectomy ICD Codes: Z90.49 - Acquired absence of other specified parts of digestive tract (2) Elevated liver enzymes ICD Codes: R74.8 - Abnormal levels of other serum enzymes (3) Common bile duct obstruction ICD Codes: K83.1 - Obstruction of bile duct Status: Acute Assessment and Plan 42-year-old female status post left Cholecystectomy there was some thought the intraoperative cholangiogram may have shown a common duct stone however her LFTs are continued improve in a downward direction. Okay to discharge today follow-up with Dr. Fulton in 7-10 days Attending Statement NOTE FOR SURGICAL ATTENDING, DR. BAO FRAIRE I attest that I had a [id number] encounter with the patient on the same day, and personally performed and documented my assessment and findings in the medical record. The following services were provided during this hospital visit: Chart data review, vital sign assessments/reviewing monitor data Review of consultations notes if present. Medication orders/review and/or management Ordering and/or reviewing lab tests Ordering and/or interpreting/reviewing x-rays and/or diagnostic studies Care of the patient and discussion of the patient with the care team Documentation time To help prompt me to consider important information that might be impacting today's encounter and assessment, information from prior notes written by myself or my colleagues may have been "brought forward/copy and pasted" into today's note. Bao Fraire MD Jan 03, 2018 13:16
--- NOTE | 2018-01-03 13:19 | HHI.DS ---
Discharge Summary Admission Date Dec 31, 2017 at 13:01 Discharge Date: Jan 03, 2018 Admitting Diagnosis common bile duct obstruction (1) Common bile duct obstruction ICD Code: K83.1 - Obstruction of bile duct Status: Acute Procedures ERCP w/ Lap Cholecystectomy Brief History - From Admission hx from patient and review of med records stated that yesterday around 1230 pm, she started having abdominal pain, pain in ruq pain some nausea no vomiting no diarrhea no fever usually knows she has gallstones this is her 4th gallbladder attack CBC/BMP: 01/02/18 1311 01/03/18 0957 Significant Findings Laboratory Tests Test 01/01/18 03:48 01/02/18 07:31 01/02/18 13:11 01/03/18 09:57 Alkaline Phosphatase 234 U/L (45-117) 133 U/L (45-117) 146 U/L (45-117) 147 U/L (45-117) Aspartate Amino Transf (AST/SGOT) 191 U/L (15-37) 142 U/L (15-37) 131 U/L (15-37) 129 U/L (15-37) Alanine Aminotransferase (ALT/SGPT) 315 U/L (10-53) 245 U/L (10-53) 250 U/L (10-53) 261 U/L (10-53) Total Bilirubin 7.3 MG/DL (0.2-1.0) 2.2 MG/DL (0.2-1.0) 1.7 MG/DL (0.2-1.0) 1.8 MG/DL (0.2-1.0) Carbon Dioxide Level 20.8 MEQ/L (21.0-32.0) White Blood Count 12.1 TH/MM3 (4.0-11.0) 12.0 TH/MM3 (4.0-11.0) Red Blood Count 3.35 MIL/MM3 (4.00-5.30) 3.49 MIL/MM3 (4.00-5.30) Hemoglobin 10.8 GM/DL (11.6-15.3) 11.0 GM/DL (11.6-15.3) Hematocrit 31.5 % (35.0-46.0) 33.1 % (35.0-46.0) Mean Platelet Volume 11.2 FL (7.0-11.0) 11.1 FL (7.0-11.0) Neutrophils # (Auto) 8.1 TH/MM3 (1.8-7.7) 8.1 TH/MM3 (1.8-7.7) Total Protein 5.1 GM/DL (6.4-8.2) 5.4 GM/DL (6.4-8.2) 5.6 GM/DL (6.4-8.2) Albumin 2.6 GM/DL (3.4-5.0) 2.8 GM/DL (3.4-5.0) 2.8 GM/DL (3.4-5.0) Calcium Level 8.0 MG/DL (8.5-10.1) 7.4 MG/DL (8.5-10.1) 8.1 MG/DL (8.5-10.1) Chloride Level 110 MEQ/L (98-107) 111 MEQ/L (98-107) Estimat Glomerular Filtration Rate 88 ML/MIN (>89) 75 ML/MIN (>89) Blood Urea Nitrogen 6 MG/DL (7-18) 6 MG/DL (7-18) Potassium Level 3.1 MEQ/L (3.5-5.1) 3.2 MEQ/L (3.5-5.1) Protein Corrected Calcium 8.3 MG/DL (8.5-10.1) PE at Discharge GENERAL: Well-nourished, well-developed patient, no apparent distress SKIN: Warm and dry. HEAD: Normocephalic. EYES: No scleral icterus. No injection or drainage. NECK: Supple, trachea midline. No JVD or lymphadenopathy. CARDIOVASCULAR: Regular rate and rhythm without murmurs, gallops, or rubs. RESPIRATORY: Breath sounds equal bilaterally. No accessory muscle use. GASTROINTESTINAL: Abdomen soft, non-tender, nondistended. EXTREMITIES: No cyanosis, or edema. NEUROLOGICAL: Awake, alert, and oriented x 3. Non-focal. Hospital Course 42F who presented with gallstone lodged in the common bile duct causing nausea, vomiting, pain, and elevated liver enzymes. Following ERCP w/ Lap Cholecystectomy she has recovered well. She is currently tolerating a full diet , has pain well controlled on PO meds. Denies any nausea or vomiting. Liver enzymes are trending predictably downward. I have instructed her to follow up for a post op visit for surgical wound check. She should also follow up with GI regarding elevated liver enzymes. I've provided her a lab slip to draw another LFT in 3-5 days. Pt Condition on Discharge: Good Discharge Disposition: Discharge Home Discharge Time: <= 30 minutes Discharge Instructions DIET: Follow Instructions for: Low Fat Diet Activities you can perform: Regular-No Restrictions Ismael Ansari MD Jan 03, 2018 13:19
--- NOTE | 2018-01-03 19:04 | MP ---
cc: ANGELY FULTON MD DATE OF SURGERY: 01/01/2019. PREOPERATIVE DIAGNOSIS: Symptomatic cholelithiasis with choledocholithiasis. POSTOPERATIVE DIAGNOSIS: Symptomatic cholelithiasis with choledocholithiasis. OPERATIVE PROCEDURE PERFORMED: 1. Laparoscopic common bile duct exploration. 2. Intraoperative cholangiogram under fluoroscopy. 3. Laparoscopic cholecystectomy. SURGEON: Dr. Angely Fulton. CROSS ROLLER: Antonella. ANESTHESIA: General endotracheal anesthesia. FLUIDS: with 15 cc. DRAINS: None. COMPLICATIONS None. WOUND CLASSIFICATION: Clean / contaminated. FINDINGS: Distended gallbladder, multiple gallstones, intraoperative cholangiogram showing multiple filling defects within the distal common bile duct. The distal common bile duct prior to intervention was noted be very distended and following exploration was noted be decompressed. Stones were removed/ flushed. SPECIMEN: Gallbladder. INDICATIONS FOR THE PROCEDURE: The patient is a 42-year-old female who presents with acute onset of abdominal pain and epigastric pain. She had further workup including history of known gallstones and several gallbladder attacks; however, this time ___ evaluation with concern for a very dilated common bile duct and a bilirubin of 3.9. She underwent ERCP with stone removal and MRCP evaluation of narrowed hepatic ducts that did not look too concerning. Decision was made for a laparoscopic cholecystectomy. The patient was noted to have increase in her bilirubin; therefore a decision was made for intraoperative cholangiogram. DESCRIPTION OF THE PROCEDURE IN DETAIL: The patient was taken to the operating room suite and placed in the supine position. She was prepped and draped in the usual sterile fashion after induction with general endotracheal anesthesia. A brief time out was done stating the correct patient, procedure and surgical site and we were all in agreement with this. Attention first directed to the umbilicus where local anesthetic was injected. A stab mik incision was made. A Visiport 5-mm was entered through the abdomen safely. The abdomen insufflated to 50 mm pneumoperitoneum. On cursory inspection, no evidence of injury. Three other ports were placed: One 12 mm epigastric followed by two 5 mm right subcostal ports. The patient was placed in reverse Trendelenburg and planed to the left. On cursory inspection, there was noted be a somewhat edematous gallbladder. The infundibulum was identified and dissected in the usual manner. The cystic artery was also dissected and clipped with two clips proximal and distal. was used to transect the cystic artery. Mobilization of the cystic duct was done. A 5 mm clip was placed distal and then small incision was made at the cystic duct ductotomy. Cholangiocatheter was obtained. A small stab mik incision was made superior to the other ports and cannulated through. The duct was cannulated with the cholangiocatheter and stabilized with a 5-mm endoclip. All the catheters had been flushed of any air and fluoroscopy used to identify the common bile duct which again noted to be somewhat distended as well. Under fluoroscopic imaging there were noted to be several concerning filling defects and contrast did not appear to feel the duodenum. Therefore decision was made for common bile duct exploration. The cholangiocath was removed and a ureteroscope was obtained. The ureteroscope was cannulated through the right subcostal 5 mm port. The port sheath was advanced out leaving the scope in place and a towel clamp was used to secure the skin around the ureteroscope. The ureteroscope was then cannulated through the cystic duct and directly down the common bile duct. This was done with continuous irrigation. On inspection, the duct was again somewhat dilated. There were noted to be some stone debris in the distal common bile duct that was able to be flushed and irrigated through the ampulla. The choledochoscope was also advanced through the ampulla into the proximal portion of the duodenum. The scope was then slowly advanced back keeping view intact and no further evidence of filling defects were noted. Once the scope was removed, the common bile duct did look more decompressed at this time. Consideration for doing a completion cholangiogram was entertained, however examination of the cystic duct noted it to be somewhat friable and there was concern for further trauma to the cystic duct. A completion cholangiogram was not done. The cystic duct was grasped and four clips were placed on the cystic duct without evidence of bile leaking. The cystic duct was then completely transected and the gallbladder was removed from the gallbladder fossa in typical fashion using the hook bovie electrocautery. The gallbladder was then placed in the EndoCatch bag and removed from the abdomen through the epigastric port. The bovie electrocautery was used for hemostasis. Suction irrigation done to the right upper quadrant until the effluent was completely clear. The pneumoperitoneum was removed and the ports were all removed. The epigastric port was closed with a 0 Vicryl [id number] fashion. 4-0 Monocryl used for subcuticular sutures. Sterile dressings placed including Mastisol and Steri-Strips placed. The patient tolerated procedure well. There was no intraoperative complication. All lap and instrument counts were reported to be correct at the end of the procedure. The patient was extubated and taken to the post-anesthesia care unit. MD EDUARDO Duarte/WERO /10:41 AM /6:39 PM
== END 2018-01-03 14:20 | disposition home or self-care (01) | DRG 419 ==
LOC: PHED 17:34 → PHEDA 21:51 → PH3B 23:24 → OBSVTOIN 12-31 13:01 → N07A 12-31 17:18
PROVIDERS: ADMIT Family Medicine; ATTEND Family Medicine
PROC: 0FC98ZZ Extirpation of Matter from Common Bile Duct, Via Natural or Artificial Opening Endoscopic (ICD-10-PCS; 2017-12-31)
PROC: 0F9 Hepatobiliary System and Pancreas, Drainage (ICD-10-PCS; 2017-12-31)
PROC: 0FC94ZZ Extirpation of Matter from Common Bile Duct, Percutaneous Endoscopic Approach (ICD-10-PCS; 2018-01-01)
PROC: BF101ZZ Fluoroscopy of Bile Ducts using Low Osmolar Contrast (ICD-10-PCS; 2018-01-01)
PROC: 0FT44ZZ Resection of Gallbladder, Percutaneous Endoscopic Approach (ICD-10-PCS; principal; 2018-01-01 07:17)
DX: K80.71 Calculus of gallbladder and bile duct without cholecystitis with obstruction (principal); D64.9 Anemia, unspecified; Z87.891 Personal history of nicotine dependence
CPT/HCPCS: 74177; 74181; 74300; 74330; 76377; 76705; 80053; 81001; 83690; 84703; 85025; 88112; 88304; 96361; 96374; 96375; 96376; C1769; G0378; J0330; J1100; J1170; J1885; J2175; J2250; J2270; J2405; J2543; J2710; J3010; J7030; J8501; Q9967